=== PATIENT | male | born 1960 | race Caucasian/White ===

== ENCOUNTER 2018-04-30 18:14 | Emergency (ER) | payer OTHER ==
[~2018-04-30] VITALS: Ht 182.9 cm; Wt 131.5 kg
[~2018-04-30 18:14] MED LIST: ALBUTEROL SULF8.5 GM INH; AMOXICILLIN 50500 MG PO; AMOXICILLIN500 M1 PO; ASPIR 8181 M1 PO; AUGMENTIN 875875 MG PO; AZITHROMYCIN 2250 MG PO; BACTRIM DS TAB1 EACH PO; CHERACOL COUGH120 ML PO; CIPROFLOXACIN500 M1 PO; CLARITIN10 MG; CLEOCIN HCL150 MG PO; DELTASONE20 MG PO; FLEXERIL PO; FLOMAX0.4 MG PO; HYDROCODONE-AP1 EAC6 PO; KEFLEX500 MG PO; LEVAQUIN 750 M750 MG PO; MEDROLDOSEPACK PO; METFORMIN HCL500 MG PO; NOHOMEMEDICATIONS; NORCO 5-325 TA1 EACH PO; PREDNISONE 10 M10 MG PO; PREDNISONE 20 M20 M1 PO; PREDNISONE 20 M20 MG PO; PREDNISONE50 MG PO; PRILOSEC 20 MG20 MG PO; PRINIVIL20 M1 PO; PROAIR HFA8.5 GM INH; PROAIR HFA8.5 GM PO; PROMETH-CODEIN 65 ML PO; PROVENTIL IN; PYRIDIUM100 MG PO; TRAMADOL 50 MG50 MG PO; VENTOLIN HFA 1818 GM INH; VENTOLIN HFA INH8 GM INH; VENTOLIN17 GM INH; VICODIN 5-5001 EACH PO; ZPAK PO
[2018-04-30 19:06] LABS: ABSOLUTE BASOPHILS 0.1 thou/uL (0.0-0.2); ABSOLUTE EOSINOPHILS 0.2 thou/uL (0.0-0.7); ABSOLUTE LYMPHOCYTES 2.2 thou/uL (0.8-5.3); ABSOLUTE NEUTROPHILS 9.3 thou/uL (1.6-8.1); EOSINOPHILS 1.3 %; HEMATOCRIT 46.5 % (42.0-52.0); HEMOGLOBIN 15.2 gm/dL (14.0-18.0); LYMPHOCYTES 17.1 %; MCH 29.3 pg (26.0-34.0); MCHC 32.7 g/dL (28.0-37.0); MCV 89.5 fL (80.0-100.0); MONOCYTES 8.2 %; MPV 8.5 fl. (7.2-11.1); NUCLEATED RBCS 0 /100WBC; PLATELET COUNT* 312 thou/uL (150-400); POLYS 72.4 %; RDW-CV 14.2 % (10.5-14.5); WBC 12.8 thou/uL (4.0-11.0)
[2018-04-30 19:24] LABS: ANION GAP 4 mmol/L (7-16); BUN 9 mg/dL (7-18); CALCIUM 8.6 mg/dL (8.5-10.1); CHLORIDE 102 mmol/L (98-107); CO2 35 mmol/L (21-32); CREATININE 0.8 mg/dL (0.6-1.3); GLUCOSE 206 mg/dL (70-99); POTASSIUM 4.2 mmol/L (3.5-5.1); SODIUM 141 mmol/L (136-145)
[2018-04-30 19:34] LABS: ALBUMIN 3.5 g/dL (3.4-5.0); ALKALINE PHOSPHATASE 80 U/L (46-116); SGPT 20 U/L (30-65); TOTAL BILIRUBIN 0.3 mg/dL (<0.1-1.0); TOTAL PROTEIN 7.7 g/dL (6.4-8.2); TROPONIN-I LEVEL <0.06 ng/mL (<0.06)
[2018-04-30 19:50] LABS: SGOT 13 U/L (15-37)
[2018-04-30] MEDS ORDERED: ALBUTEROL2.5 MG/31 INH (20:25)
[2018-04-30] MEDS ORDERED: ZPAK PO (20:25)
[2018-04-30] MEDS ORDERED: PROAIR HFA8.5 GM INH (20:25)
[2018-04-30] MEDS ORDERED: PREDNISONE 20 M20 M1 PO (20:25)
[2018-04-30 20:57] VITALS: BP 135/75
--- NOTE | 2018-05-01 13:03 | EKG ---
[place] [address] ELECTROCARDIOGRAM REPORT Name: MARLENE CARTER Room: [facility]#: [id number] Admission: 04/30/18 Attend Phys: Discharge: 04/30/18 Date of : 60 Report #: [id number] THIS REPORT FOR: //name// [facility] ED Test Date: 2018-04-30 Test Time: 19:06:07 Pat Name: MARLENE CARTER Department: Room: Gender: M Inspector Electromechanical: : 1960 Requested By: Sujey Melara Order Number: [id number] MD: Reno Núñez Measurements Intervals [place] Rate: 91 P: 57 NV: 156 QRS: 34 QRSD: 82 T: 70 QT: 337 QTc: 415 Interpretive Statements Sinus rhythm Ventricular premature complex Baseline wander in lead(s) V3 Compared to ECG 04/20/2017 13:53:57 Ventricular premature complex(es) now present Electronically Signed On 05-01-2018 13:03:33 CDT by Reno Núñez [email or web address] <ELECTRONICALLY SIGNED> By: Reno Núñez MD, [facility] 05/01/18 1303 1906 1906 Reno Núñez MD, [facility] /EPI
== END 2018-04-30 21:02 | disposition home or self-care (01) ==
LOC: M.ERS 18:14
PROVIDERS: Nurse Practitioner Family
DX: J44.1 Chronic obstructive pulmonary disease with (acute) exacerbation (principal); R09.02 Hypoxemia; Z87.891 Personal history of nicotine dependence; Z90.49 Acquired absence of other specified parts of digestive tract

== ENCOUNTER 2018-07-13 19:25 | Emergency (ER) | payer OTHER ==
[~2018-07-13] VITALS: Ht 182.9 cm; Wt 127.0 kg
[~2018-07-13 19:25] MED LIST changes: +ALBUTEROL2.5 MG/31 INH
[2018-07-13 20:56] LABS: ANION GAP 4 mmol/L (7-16); BUN 11 mg/dL (7-18); CALCIUM 9.1 mg/dL (8.5-10.1); CHLORIDE 101 mmol/L (98-107); CO2 34 mmol/L (21-32); CREATININE 0.7 mg/dL (0.6-1.3); GLUCOSE 235 mg/dL (70-99); POTASSIUM 4.3 mmol/L (3.5-5.1); SODIUM 139 mmol/L (136-145)
[2018-07-13 21:03] LABS: ALBUMIN 3.5 g/dL (3.4-5.0); ALKALINE PHOSPHATASE 89 U/L (46-116); SGOT 10 U/L (15-37); SGPT 20 U/L (30-65); TOTAL BILIRUBIN 0.2 mg/dL (<0.1-1.0); TOTAL PROTEIN 7.7 g/dL (6.4-8.2); TROPONIN-I LEVEL <0.06 ng/mL (<0.06)
[2018-07-13 21:14] LABS: HEMATOCRIT 48.6 % (42.0-52.0); HEMOGLOBIN 15.8 gm/dL (14.0-18.0); MCH 29.1 pg (26.0-34.0); MCHC 32.6 g/dL (28.0-37.0); MCV 89.3 fL (80.0-100.0); MPV 9.2 fl. (7.2-11.1); NUCLEATED RBCS 0 /100WBC; PLATELET COUNT* 278 thou/uL (150-400); RBC 5.44 mil/uL (4.50-6.00); RDW-CV 13.8 % (10.5-14.5); WBC 13.3 thou/uL (4.0-11.0)
[2018-07-13] MEDS ORDERED: PREDNISONE 20 M20 M1 PO (21:28)
[2018-07-13] MEDS ORDERED: ZPAK PO (21:28)
[2018-07-13] MEDS ORDERED: VENTOLIN HFA 1818 GM INH (21:29)
[2018-07-13 21:33] LABS: ABSOLUTE LYMPHOCYTES 3.9 thou/uL (0.8-5.3); ABSOLUTE MONOCYTES 0.7 thou/uL (0.0-1.2); ABSOLUTE NEUTROPHILS 8.8 thou/uL (1.6-8.1); ATYPICAL LYMPHS 3 %; PLATELET ESTIMATE ADEQUATE
[2018-07-13 22:10] VITALS: BP 172/88
--- NOTE | 2018-07-15 15:33 | EKG ---
[place] [address] ELECTROCARDIOGRAM REPORT Name: MARLENE CARTER Room: 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: PAT : 1960 Requested By: Tammie Fowler Order Number: [id number] Reading MD: Hardeep Calles Measurements Intervals [place] Rate: 81 P: 59 WV: 147 QRS: 41 QRSD: 84 T: 69 QT: 369 QTc: 429 Interpretive Statements Sinus rhythm Compared to ECG 04/30/2018 19:06:07 Ventricular premature complex(es) no longer present Electronically Signed On 07-15-2018 15:33:40 PLANT OPERATOR by Hardeep Calles [email or web address] <ELECTRONICALLY SIGNED> By: Hardeep Calles MD, [facility] 07/15/18 1533 2145 2145 Hardeep Calles MD, FACC /EPI
--- NOTE | 2018-07-15 15:33 | EKG ---
[place] [address] ELECTROCARDIOGRAM REPORT Name: MARLENE CARTER Room: [facility]#: [id number] Admission: 07/13/18 Attend Phys: Discharge: 07/13/18 Date of : 60 Report #: [id number] THIS REPORT FOR: //name// [facility] ED Test Date: 2018-07-13 Test Time: 20:15:17 Pat Name: MARLENE CARTER Department: Room: Gender: M Optical Element Coater: KAROL : 1960 Requested By: Tammie Fowler Order Number: [id number] MD: Hardeep Calles Measurements Intervals [place] Rate: 75 P: 62 TX: 153 QRS: 42 QRSD: 86 T: 63 QT: 377 QTc: 421 Interpretive Statements Sinus rhythm Compared to ECG 04/30/2018 19:06:07 Ventricular premature complex(es) no longer present Electronically Signed On 07-15-2018 15:33:38 OPERATIONAL COMMUNICATION CHIEF by Hardeep Calles [email or web address] <ELECTRONICALLY SIGNED> By: Hardeep Calles MD, [facility] 07/15/18 1533 14 14 Hardeep Calles MD, FACC /EPI
== END 2018-07-13 22:13 | disposition home or self-care (01) ==
LOC: M.ERS 19:25
PROVIDERS: Nurse Practitioner Family
DX: J42 Unspecified chronic bronchitis (principal); Z87.891 Personal history of nicotine dependence; Z90.49 Acquired absence of other specified parts of digestive tract

== ENCOUNTER 2018-08-12 16:18 | Inpatient (IN) | payer OTHER ==
[~2018-08-12] VITALS: Ht 182.9 cm; Wt 135.6 kg
[2018-08-12 17:05] LABS: HEMATOCRIT 48.4 % (42.0-52.0); HEMOGLOBIN 16.1 gm/dL (14.0-18.0); MCH 29.1 pg (26.0-34.0); MCHC 33.3 g/dL (28.0-37.0); MCV 87.5 fL (80.0-100.0); MPV 9.5 fl. (7.2-11.1); NUCLEATED RBCS 0 /100WBC; PLATELET COUNT* 293 thou/uL (150-400); RBC 5.53 mil/uL (4.50-6.00); WBC 11.9 thou/uL (4.0-11.0)
[2018-08-12 17:18] LABS: ANION GAP 5 mmol/L (7-16); BUN 9 mg/dL (7-18); CALCIUM 8.5 mg/dL (8.5-10.1); CHLORIDE 97 mmol/L (98-107); CO2 32 mmol/L (21-32); CREATININE 0.7 mg/dL (0.6-1.3); GLUCOSE 233 mg/dL (70-99); POTASSIUM 3.9 mmol/L (3.5-5.1); SODIUM 134 mmol/L (136-145)
[2018-08-12 17:28] LABS: ALBUMIN 3.1 g/dL (3.4-5.0); ALKALINE PHOSPHATASE 94 U/L (46-116); LIPASE 96 U/L (73-393); NT-PRO BRAIN NAT PEPTIDE 185 pg/mL (<300); SGOT 11 U/L (15-37); SGPT 18 U/L (30-65); TOTAL BILIRUBIN 0.5 mg/dL (<0.1-1.0); TROPONIN-I LEVEL <0.06 ng/mL (<0.06)
[2018-08-12 17:45] LABS: APTT 26.4 Seconds (25.0-31.3); INR 1.1
[2018-08-12 17:49] LABS: ABSOLUTE LYMPHOCYTES 1.5 thou/uL (0.8-5.3); ABSOLUTE MONOCYTES 0.1 thou/uL (0.0-1.2); ABSOLUTE NEUTROPHILS 10.2 thou/uL (1.6-8.1)
[2018-08-12 17:50] LABS: PLATELET ESTIMATE ADEQUATE
[2018-08-12 17:59] LABS: TOXIC GRANULATION Occasional
[2018-08-12 19:12] LABS: BE 2.1 mmol/L (-2 to +3); HCO3 29.9 mmol/L (22.0-26.0); pH 7.325 (7.340-7.450)
[2018-08-12 19:20] LABS: PCO2 58.7 mmHg (35.0-45.0)
[2018-08-12 19:56] LABS: INFLUENZA A ANTIGEN None Detected (None Detect); INFLUENZA B ANTIGEN None Detected (None Detect)
[2018-08-12 21:37] LABS: URINE BILIRUBIN NEGATIVE (Negative); URINE BLOOD NEGATIVE (Negative); URINE CLARITY CLEAR; URINE COLOR YELLOW; URINE GLUCOSE-RANDOM NEGATIVE (Negative); URINE KETONES NEGATIVE (Negative); URINE LEUKOCYTES-REFLEX NEGATIVE (Negative); URINE NITRITE-REFLEX NEGATIVE (Negative); URINE PROTEIN NEGATIVE (Negative); URINE SPECIFIC GRAVITY <= 1.005 (1.005-1.030); URINE UROBILINOGEN 0.2 E.U./dl (0.2-1.0)
[2018-08-13] VITALS (8 sets, daily range): BP systolic 113–141; BP diastolic 55–79
[2018-08-13 05:41] LABS: ABSOLUTE LYMPHOCYTES 0.9 thou/uL (0.8-5.3); ABSOLUTE MONOCYTES 0.1 thou/uL (0.0-1.2); ABSOLUTE NEUTROPHILS 5.9 thou/uL (1.6-8.1); BASOPHILS 0.1 %; HEMATOCRIT 47.6 % (42.0-52.0); HEMOGLOBIN 15.7 gm/dL (14.0-18.0); LYMPHOCYTES 12.8 %; MCH 29.3 pg (26.0-34.0); MCV 88.8 fL (80.0-100.0); MONOCYTES 0.8 %; MPV 9.5 fl. (7.2-11.1); NUCLEATED RBCS 0 /100WBC; PLATELET COUNT* 325 thou/uL (150-400); POLYS 86.3 %; RBC 5.36 mil/uL (4.50-6.00); WBC 6.8 thou/uL (4.0-11.0)
[2018-08-13 06:03] LABS: CALCIUM 8.7 mg/dL (8.5-10.1); CREATININE 0.9 mg/dL (0.6-1.3); POTASSIUM 4.7 mmol/L (3.5-5.1)
--- NOTE | 2018-08-13 06:30 | NUR ---
PATIENT REMAINS ON VENTIMASK THROUGHOUT SHIFT AT 50% FIO2, 6L. O2 SATS MAINTAINED >92%. PATIENT STATES HE "FEELS MUCH BETTER NOW." PATIENT AMBULATING IN HALLWAY DESPITE THIS RN EDUCATING HIM ON BEDREST ORDERS TO PREVENT OVER EXERTION. PATIENT STATES HE FEELS BETTER WHEN HE GETS UP. PATIENT RECEIVED RELIEF FROM MORPHINE X1 FOR ABDOMINAL PAIN. CALL LIGHT WITHIN REACH
[2018-08-13 08:48] LABS: BE 0.8 mmol/L (-2 to +3); PCO2 48.6 mmHg (35.0-45.0); pH 7.363 (7.340-7.450)
[2018-08-13 08:49] LABS: PO2 50.7 mmHg (75.0-100.0)
[2018-08-13 10:06] LABS: pH 7.273 (7.340-7.450)
[2018-08-13 10:07] LABS: BE 0 mmol/L (-2 to +3); HCO3 28.8 mmol/L (22.0-26.0); PCO2 63.7 mmHg (35.0-45.0); PO2 72.7 mmHg (75.0-100.0)
--- NOTE | 2018-08-13 12:30 | NUR ---
Pt is A&O. Resides at home alone. Active and independent, continues to work outside of the home. No DME. No hx of HH or SNF. Per nurse, Pt may need home o2 at nd, Pt states that he cannot afford o2 and he does not have health insurance. CM explained that if Pt does need o2, it will cost around $130/month through [employer], and Pt will need to pay with a credit card. Pt reiterated that he is not able to afford the o2. Pt is currently not on o2 in his room. Following.
--- NOTE | 2018-08-13 12:45 | EKG ---
[place] [address] ELECTROCARDIOGRAM REPORT Name: MARLENE CARTER Room: [address] ADM IN [facility].#: [id number] Admission: 08/12/18 Attend Phys: Wilmer Hemphill MD Discharge: Date of : 60 Report #: [id number] THIS REPORT FOR: //name// [facility] ED Test Date: 2018-08-12 Test Time: 16:47:18 Pat Name: MARLENE CARTER Department: Room: 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
--- NOTE | 2018-08-13 17:56 | NUR ---
PATIENT UP IN [place] ABDM PAIN INCREASED SSI TO MEDIUM DOSE.
[2018-08-14] VITALS (11 sets, daily range): BP systolic 90–128; BP diastolic 45–85
--- NOTE | 2018-08-14 01:00 | NUR ---
RECEIVED REPORT AND ASSUMED CARE AT 1900. VSS. CARDIAC MONITORING IN PLACE. PT DENIES ANY COMPLAINTS OF PAIN. ASSESSMENT COMPLETED CHARTED. PT UP AD MANFRED ON RA. DISCUSSED PLAN OF CARE WITH PT, VERBALIZED UNDERSTANDING. PT REFUSING TO WEAR O2.PT EDUCATED, VERBALIZED UNDERSTANDING. BED LOCKED IN LOWEST POSITION, CALL LIGHT WITHIN REACH. WILL CONTINUE TO MONITOR FOR REMAINDER OF THE SHIFT
--- NOTE | 2018-08-14 08:00 | NUR ---
ASSUME CARE OF PT. AFIB IN 150S. DR CARDONA AWARE. CARDIZEM GTT INFUSING. CARDIOLOGY CONSULTED. PT ASYMPTOMATIC
--- NOTE | 2018-08-14 18:05 | NUR ---
Pt up in room and halls with steady gait. Afib in 140-160s on monitor. Asymptomatic Pt started on Sotalol and digoxin with minimal change in HR. Pt tolerating PO well. BG remain elevated-SS insulin given.
[2018-08-15] VITALS (10 sets, daily range): BP systolic 103–161; BP diastolic 60–84
[2018-08-15 02:10] LABS: ESTIMATED AVERAGE GLUCOSE > 398 mg/dL (()); GLYCOHEMOGLOBIN (HGB A1C) > 15.5 % (4.8-5.6)
--- NOTE | 2018-08-15 04:57 | NUR ---
RECEIVED REPORT AND ASSUMED CARE AT 1900. VSS. CARDIAC MONITORING IN PLACE. PT DENIES ANY COMPLAINTS OF PAIN. DISCUSSED PLAN OF CARE WITH PT, VERBALIZED UNDERSTANDING. ASSESSMENT COMPLETED CHARTED. PT UP AD MANFRED IN ROOM, ON RA. BED LOCKED IN LOWEST POSITION, CALL LIGHT WITHIN REACH. HOURLY ROUNDING COMPLETED AND ALL NEEDS MET.WILL CONTINUE TO MONITOR FOR REMAINDER OF THE SHIFT
--- NOTE | 2018-08-15 11:10 | NUR ---
RECEIVED REPORT FROM CLAUDIA LAZAR. AGREE WITH ASSESSMENT CHARTED. PT ALERT AND ORIETNED. NOTED AFIB ON MONITOR HR ELEVATED WILL MONITOR. IV NOW SALINE LOCKED. WILL CONITNUE TO MONITOR.
--- NOTE | 2018-08-15 13:45 | EKG ---
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
--- NOTE | 2018-08-15 14:08 | 2DMMODE ---
[place] [address] 2 D/M-MODE ECHOCARDIOGRAM Name: MARLENE CARTER Room: [address] IN [facility]#: [id number] Admission: 08/12/18 Attend Phys: Wilmer Hemphill, Discharge: Date of : 60 Date of Service: 08/15/18 1407 Report #: [id number] THIS REPORT FOR: //name// APPROVED REPORT Study performed: 08/15/2018 11:29:01 EXAM: Comprehensive 2D, Doppler, and color-flow Echocardiogram Patient Location: In-Patient Room #: [facility] Status: routine BSA: 2.52 HR: 124 bpm BP: 129/76 mmHg Rhythm: Atrial Fibrillation Other Information Study Quality: Adequate Indications Atrial Fibrillation Dyspnea 2D Dimensions IVSd: 15.84 (7-11mm) LVOT Diam: 22.97 (18-24mm) LVDd: 55.48 mm PWd: 10.43 (7-11mm) Ascending Ao: 34.69 (22-36mm) LVDs: 42.34 (25-40mm) Aortic Root: 34.60 mm Volumes Left Atrial Volume (Systole) LA ESV Index: 29.80 mL/m2 Aortic Valve AoV Peak Ian.: 1.20 m/s AO Peak Gr.: 5.80 mmHg LVOT Max P.80 mmHg AO Mean Gr.: 3.00 mmHg LVOT Mean P.45 mmHg LVOT Max V: 1.10 m/s AO V2 VTI: 20.49 cm LVOT Mean V: 0.72 m/s JILLIAN (VTI): 4.33 cm2 LVOT V1 VTI: 21.41 cm TDI Medial E' Ian.: 0.13 m/s Lateral E' Ian.: 0.16 m/[place] [address] 2 D/M-MODE ECHOCARDIOGRAM Name: MARLENE CARTER Room: [address] IN [facility].#: [id number] Admission: 08/12/18 Attend Phys: Wilmer Hemphill, Discharge: Date of : 60 Date of Service: 08/15/18 1407 Report #: [id number] Pulmonary Valve PV Peak Ian.: 0.94 m/s PV Peak Gr.: 3.51 mmHg Left Ventricle The left ventricle is normal size. There is global hypokinesis of the left ventricle. There is normal left ventricular wall thickness. Left ventricular systolic function is mildly decreased. LVEF is 45-50%. This study is not technically sufficient to allow evaluation of the LV diastolic function due to atrial fibrillation. Right Ventricle The right ventricle is normal size. The right ventricular systolic function is normal. Atria Left atrium is mildly dilated. The right atrium size is normal. Aortic Valve The aortic valve is normal in structure. No aortic regurgitation is present. There is no aortic valvular stenosis. Mitral Valve The mitral valve is normal in structure. Trace mitral regurgitation. No evidence of mitral valve stenosis. Tricuspid Valve The tricuspid valve is normal in structure. There is no tricuspid valve regurgitation noted. Pulmonic Valve Pulmonic valve is not well visualized. There is no pulmonic valvular regurgitation. Great Vessels The aortic root is normal in size. IVC is normal in size and collapses >50% with inspiration. Pericardium There is no pericardial effusion. <Conclusion> [place] [address] 2 D/M-MODE ECHOCARDIOGRAM Name: EMMAMARLENE L Room: [address] IN ..#: [id number] Admission: 08/12/18 Attend Phys: Wilmer Hemphill, Discharge: Date of : 60 Date of Service: 08/15/18 140 Report #: [id number] LVEF is 45-50%. Left atrium is mildly dilated. <ELECTRONICALLY SIGNED> By: Jasper Luna MD, [facility] 08/15/18 1407 1407 1407 Jasper Luna MD, FACC /INF
--- NOTE | 2018-08-15 15:38 | EKG ---
[place] [address] ELECTROCARDIOGRAM REPORT Name: MARLENE CARTER Room: [address] ADM IN ..#: [id number] Admission: 08/12/18 Attend Phys: Wilmer Hemphill MD Discharge: Date of : 60 Report #: [id number] THIS REPORT FOR: //name// [facility] Test Date: 2018-08-15 Test Time: 08:21:57 Pat Name: MARLENEBRENDA CARTER Department: Room: [address] Gender: M Adult Education Instructor: : 1960 Requested By: Jasper Luna Order Number: [id number] Nayeli MD: Jasper Luna Measurements Intervals [place] Rate: 88 P: [place]: QRS: 46 QRSD: 80 T: 62 QT: 349 QTc: 423 Interpretive Statements Atrial fibrillation Electronically Signed On 08-15-2018 15:38:46 BASEBALL HAND SEWER by Jasper Luna [email or web address] <ELECTRONICALLY SIGNED> By: Jasper Luna MD, [facility] 08/15/18 1538 0821 0 Jasper Luna MD, FACC /EPI
--- NOTE | 2018-08-15 17:18 | NUR ---
VSS. CARDIAC MONITORING IN PLACE AFIB. HR ELEVATED INTERMITTENTLY THROUGHOUT SHIFT FROM 110-150'S. PT REMAINS ALERT AND ORIENTED. PT ON RA. IV SALINE LOCKED. PT DENIES ANY PAIN. PT PROGRESSING TOWARDS GOALS. PT UP AD MANFRED. CALL LIGHT IS WITHIN REACH. WILL CONTINUE TO MONITOR FOR DURATION OF SHIFT.
[2018-08-16] VITALS: BP 143/76
[2018-08-16 04:00] VITALS: BP 110/65
[2018-08-16 07:50] VITALS: BP 137/66
--- NOTE | 2018-08-16 08:00 | NUR ---
RECEIVED REPORT. ASSUMED CARE OF PT AT 0730. VSS. CARDIAC MONITORING IN PLACE AFIB. AM ASSESSMENT AND VITALS COMPLETED CHARTED. PT ALERT AND ORIENTED. PT ON RA WITH O2 SAT AT 92% IV SALINE LOCKED. PT DENIES ANY PAIN OR DISCOMFORT THIS AM. PT SITTING AT EDGE OF BED EATING BREAKFAST THIS AM. PT REPORTS READY TO D/C TODAY. PT INFORMED OF PLAN OF CARE. CALL LIGHT IS WITHIN REACH. WILL CONTINUE TO MONTIOR FOR DURAITON OF SHIFT.
--- NOTE | 2018-08-16 08:01 | NUR ---
ASSUMED PT CARE @ 193. A+OX4. AFIB/AFLUTTER W OCCASSIONAL PVCS ON MONITOR. HEART RATE STEADILY IMPROVED THROUGH SHIFT. PT REPORTED HE DIDNT NEED BENTYL ANYMORE. NOTIFIED DAY SHIFT. PT DENIED ANY PAIN OR DISCOMFORT. SEE EMAR AND CHARTING. CALL LIGHT IN REACH. HOURLY ROUNDING FOR SAFETY.
[2018-08-16 09:08] VITALS: BP 137/66
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
[2018-08-16 11:30] VITALS: BP 113/68
[2018-08-16 12:12] VITALS: BP 113/68
--- NOTE | 2018-08-16 13:47 | EKG ---
[place] [address] ELECTROCARDIOGRAM REPORT Name: MARLENE CARTER Room: [address] ADM IN .R.#: [id number] Admission: 08/12/18 Attend Phys: Wilmer Hemphill MD Discharge: Date of : 60 Report #: [id number] THIS REPORT FOR: //name// [facility] Test Date: 2018-08-16 Test Time: 08:51:23 Pat Name: MARLENE CARTER Department: Room: [address] Gender: M Lean Specialist: : 1960 Requested By: Jasper Luna Order Number: [id number] Reading MD: Reno Núñez Measurements Intervals [place] Rate: 83 P: [place]: QRS: 38 QRSD: 80 T: 59 QT: 363 QTc: 427 Interpretive Statements Atrial fibrillation Compared to ECG 08/15/2018 08:21:57 No significant changes Electronically Signed On 08-16-2018 13:47:13 PLACEMENT ASSISTANT by Reno Núñez [email or web address] <ELECTRONICALLY SIGNED> By: Reno Núñez MD, [facility] 08/16/18 1347 0851 Reno Núñez MD, [facility] /EPI
[2018-08-16] MEDS ORDERED: PROTONIX40 M1 PO (16:19)
[2018-08-16] MEDS ORDERED: PREDNISONE 10 M10 MG PO (16:19)
[2018-08-16] MEDS ORDERED: VENTOLIN HFA 1818 GM INH (16:20)
[2018-08-16] MEDS ORDERED: METFORMIN HCL500 MG PO (16:21)
[2018-08-16] MEDS ORDERED: GLUCOTROL5 MG PO (16:21)
[2018-08-16] MEDS ORDERED: CEFDINIR300 MG PO (16:21)
[2018-08-16] MEDS ORDERED: DILTIAZEM HCL90 MG PO (17:25)
--- NOTE | 2018-08-16 17:39 | NUR ---
DISCAHRGE ORDERS RECEIVED AND PREPARED. IV AND CARDIAC MOTNIORING DISCONTINUED. PT EDUCATED ON DISCHARGE INSTRCUTIONS. PT GIVEN COPY OF DISCHARGE PAPERWORK AND NEW SCRIPTS. PT COMMUNICATES UNDERSTANDING. ALL PT'S PERSONAL BELONGINGS GATHERED AND SENT HOME WITH PT. PT ESCORTED OFF UNIT WITH NURSING STAFF. PT LEFT IN PRIVATE VEHICLE.
== END 2018-08-16 17:42 | disposition home or self-care (01) | DRG 189 ==
LOC: M.ERS 16:18 → M.TBA-ER 19:20 → M.2W 22:17 → M.TBA-ER 22:17 → M.2W 23:49
PROVIDERS: Emergency Medicine; Nurse Practitioner Psychiatric/Mental Health; ADMIT Internal Medicine
DX: J96.01 Acute respiratory failure with hypoxia (principal); J44.1 Chronic obstructive pulmonary disease with (acute) exacerbation; R65.10 Systemic inflammatory response syndrome (SIRS) of non-infectious origin without acute organ dysfunction; J44.0 Chronic obstructive pulmonary disease with (acute) lower respiratory infection; J20.9 Acute bronchitis, unspecified; E66.9 Obesity, unspecified; I48.91 Unspecified atrial fibrillation; E11.65 Type 2 diabetes mellitus with hyperglycemia; Z90.49 Acquired absence of other specified parts of digestive tract; Z68.41 Body mass index [BMI] 40.0-44.9, adult; Z90.81 Acquired absence of spleen; Z87.891 Personal history of nicotine dependence; Z82.49 Family history of ischemic heart disease and other diseases of the circulatory system

== ENCOUNTER 2018-08-28 10:25 | Inpatient (IN) | payer OTHER ==
[~2018-08-28] VITALS: Ht 182.9 cm; Wt 143.1 kg
[~2018-08-28 10:25] MED LIST changes: +CEFDINIR300 MG PO; +DILTIAZEM HCL90 MG PO; +GLUCOTROL5 MG PO; +PROTONIX40 M1 PO
[2018-08-28 10:52] LABS: HEMATOCRIT 45.9 % (42.0-52.0); HEMOGLOBIN 15.2 gm/dL (14.0-18.0); MCH 29.8 pg (26.0-34.0); MCHC 33.1 g/dL (28.0-37.0); MPV 9.5 fl. (7.2-11.1); NUCLEATED RBCS 0 /100WBC; PLATELET COUNT* 295 thou/uL (150-400); RBC 5.09 mil/uL (4.50-6.00); RDW-CV 14.5 % (10.5-14.5); WBC 18.2 thou/uL (4.0-11.0)
[2018-08-28 11:02] LABS: ANION GAP 5 mmol/L (7-16); APTT 24.5 Seconds (25.0-31.3); BUN 11 mg/dL (7-18); CALCIUM 8.5 mg/dL (8.5-10.1); CHLORIDE 99 mmol/L (98-107); CO2 33 mmol/L (21-32); CREATININE 0.9 mg/dL (0.6-1.3); GLUCOSE 396 mg/dL (70-99); INR 1.1; POTASSIUM 4.5 mmol/L (3.5-5.1); PROTIME 11.4 Seconds (9.20-11.50); SODIUM 137 mmol/L (136-145)
[2018-08-28 11:22] LABS: ABSOLUTE BASOPHILS 0.2 thou/uL (0.0-0.2); ABSOLUTE LYMPHOCYTES 3.1 thou/uL (0.8-5.3); ABSOLUTE MONOCYTES 0.9 thou/uL (0.0-1.2); ALKALINE PHOSPHATASE 104 U/L (46-116); ATYPICAL LYMPHS 4 %; CK-MB MASS 1.2 ng/mL (<0.5-3.6); LIPASE 175 U/L (73-393); MAGNESIUM 1.9 mg/dL (1.8-2.4); NT-PRO BRAIN NAT PEPTIDE 826 pg/mL (<300); PLATELET ESTIMATE ADEQUATE; SGOT 22 U/L (15-37); SGPT 76 U/L (30-65); TOTAL BILIRUBIN 0.8 mg/dL (<0.1-1.0); TOTAL PROTEIN 7.2 g/dL (6.4-8.2); TROPONIN-I LEVEL <0.06 ng/mL (<0.06)
[2018-08-28 14:24] VITALS: BP 107/75
[2018-08-28 14:45] VITALS: BP 116/97
--- NOTE | 2018-08-28 15:25 | NUR ---
1440 ADMITTED PER CART TO ROOM 229 FROM ER. SEE ADMISSION ASSESSMNET. PT IS A FIB WITH RVR. SEE MEDICATION TITRATION
--- NOTE | 2018-08-28 16:16 | NUR ---
1600 IV DIGOXIN GIVEN FOR A FIB RVR. DR LEWIS TO SEE PATIENT.
--- NOTE | 2018-08-28 16:29 | EKG ---
[place] [address] ELECTROCARDIOGRAM REPORT Name: MARLENE CARTER Room: [address] ADM IN R.#: [id number] Admission: 08/28/18 Attend Phys: Wilmer Hemphill MD Discharge: Date of : 60 Report #: [id number] THIS REPORT FOR: //name// [facility] ED Test Date: 2018-08-28 Test Time: 10:41:28 Pat Name: MARLENE CARTER Department: Room: [facility] Gender: M Web Press Operator Assistant: MEGAN : 1960 Requested By: Jomar Manuel Order Number: [id number] MD: David Rock Measurements Intervals [place] Rate: 169 P: [place]: QRS: 42 QRSD: 85 T: 72 QT: 267 QTc: 448 Interpretive Statements Atrial fibrillation with rapid V-rate Borderline low voltage, extremity leads Repolarization abnormality, prob rate related Compared to ECG 08/16/2018 08:51:23 Early repolarization now present Electronically Signed On 08-28-2018 16:28:49 DATA PROCESSING SPECIALIST by David Rock [email or web address] <ELECTRONICALLY SIGNED> By: David Rock MD, [facility] 08/28/18 1628 1041 1041 David Rock MD, [facility] /EPI
[2018-08-28 16:40] VITALS: BP 102/70
--- NOTE | 2018-08-28 17:14 | NUR ---
PATIENT STATES HE STOPPED TAKING MEDS INCLUDING DILTIAZEM AT HOME WHEN HE RAN OUT HE JUST COULD NOT AFFORD THEM. HE HAD CHECKED HIS BLOOD SUGAR WITH HIS BROTHER'S INSTRUMENT
--- NOTE | 2018-08-28 17:35 | NUR ---
PATIENT PROGRESSING TOWARDS GOALS. ADMITTED THIS AFTERNOON WITH COPD EXACERBATION AND A FIB WITH RVR. SEEN BY CARDIOLOGY. NOW ABLE TO TITRATE DOWN ON CARDIZEM. LUNGS REMAIN TIGHT. GLYCEMIC CONTROL IN PROGRESS.
[2018-08-28 20:00] VITALS: BP 134/80
[2018-08-29] VITALS: BP 113/86
--- NOTE | 2018-08-29 03:17 | NUR ---
ASSUMMED PT CARE @ 1930. PT A+OX4. REPORTED RIB/ABDOMINAL MUSCLE PAIN W COUGH. PT REQUESTING PAIN MEDICINE. BLOOD SUGAR 479 @ HS CHECK. PT ONLY HAS LANTUS 15U ORDERED. NOTIFIED GRAPHIC SPECIALIST DR. DUMONT INSTRUCTED RN TO EDUCATE PT ON DIABETES ( PT DENIES HE HAS DIABETES AND HAD HGBA1C A COUPLE WEEKS AGO OF >15, AND DR REVELES STATED HE HAD ALREADY DISCUSSED DIABETES WITH THIS PATIENT). HUMALOG 12 UNITS ALSO ORDERED AND GIVEN WELL NORCO FOR PAIN. PRINTED DIABETES EDUCATION AND HGBA1C INFO AND DISCUSSED WITH PT. PT STILL DENIED HE HAD DIABETES AND WAS REQUESTING RN TO GET HIM A 20 OZ SODA FROM VENDING MACHINE. THIS RN OFFERED TO GET PT A DIET SODA AND INFORMED PT I DID NOT FEEL COMFORTABLE WITH HIM DRINKING A REGULAR SODA WITH HIS BLOOD SUGAR ALMOST CRITICAL HIGH. PT REPEATEDLY ASKED TO GO TO HIS TRUCK TO "GET MONEY FOR A SODA AND CHECK ON HIS TIRES." REPEATEDLY INFORMED PT THAT THIS WAS NOT SAFE HIS AFIB AND HR WERE UNSTABLE (130'S) AND HE IS ON A CARDIZEM DRIP AND HOOKED UP TO [facility]. PT IGNORED NURSE'S INSTRUCTIONS NOT TO WALK AROUND UNIT WITH HIS CURRENT HR- AND LEFT ROOM AND WALKED AROUND NURSES STATION TO WAITING ROOM AND PURCHASED A REG SODA FROM THE VENDING MACHINE AND DRANK IT. PT STATED "IT HELPED MY PAIN TO GET UP AND WALK AROUND." HR INCREASED TO 140'S WHILE AMBULATING, BUT HAS BEEN RUNNING 90'S-120'S THROUGHOUT SHIFT. INSTRUCTED PT TO DRINK WATER BEFORE BED TO HELP WITH BLOOD SUGAR. PT HAS BEEN ABLE TO REST SINCE TAKING PAIN MEDS. HAS NOT GOTTEN OUT OF BED AGAIN. CALL LIGHT IN REACH. HOURLY ROUNDING FOR SAFETY.
[2018-08-29 04:00] VITALS: BP 118/56
[2018-08-29 04:59] LABS: ABSOLUTE BASOPHILS 0.2 thou/uL (0.0-0.2); ABSOLUTE LYMPHOCYTES 1.1 thou/uL (0.8-5.3); ABSOLUTE MONOCYTES 0.3 thou/uL (0.0-1.2); ABSOLUTE NEUTROPHILS 12.6 thou/uL (1.6-8.1); BASOPHILS 1.3 %; HEMATOCRIT 43.9 % (42.0-52.0); HEMOGLOBIN 14.1 gm/dL (14.0-18.0); LYMPHOCYTES 7.9 %; MCH 29.3 pg (26.0-34.0); MCHC 32.2 g/dL (28.0-37.0); MONOCYTES 2.3 %; MPV 9.8 fl. (7.2-11.1); NUCLEATED RBCS 0 /100WBC; PLATELET COUNT* 269 thou/uL (150-400); POLYS 88.5 %; RBC 4.82 mil/uL (4.50-6.00); RDW-CV 14.9 % (10.5-14.5); WBC 14.2 thou/uL (4.0-11.0)
[2018-08-29 05:13] LABS: CALCIUM 8.9 mg/dL (8.5-10.1); POTASSIUM 5.3 mmol/L (3.5-5.1)
[2018-08-29 07:55] VITALS: BP 116/55
--- NOTE | 2018-08-29 07:55 | NUR ---
RECEIVED REPORT FROM ARNOL AND ASSUMED CARE OF PT @ 5561.PT IS A/O X4,VSS,TRACING AFIB ON THE MONITOR.PT REMAINS ON 3L O2 NC.ASSESSMENT CHARTED.IV PATENT WITH CARDIZEM RUNNING @ 10.IV ANTIBIOTICS GIVEN.PT IS CALM AND COOPERATIVE WITH NO C/O PAIN AT TIME OF ASSESSMENT.PT IS UP AD MANFRED IN ROOM.CALL LIGHT WITHIN REACH.WILL CONTINUE TO MONITOR.
[2018-08-29 11:45] VITALS: BP 144/95
--- NOTE | 2018-08-29 12:00 | NUR ---
MET WITH PT TO DISCUSS HOME SITUATION/DC PLANNING. PT JUST DC'D 08/13. PT WAS GIVEN COMMUNITY RESOURCES AND SCRIPTS. PT DIDN'T FILL HIS SCRIPTS FOR HIS CV MEDS D/T COST. STRESSED IMPORTANCE AND RISK OF NOT TAKING THOSE MEDS. PT STATED HE'D BEEN OFF WORK FOR 2 WEEKS AND NEEDS TO GET BACK TO WORK. PER DR CARDONA, PT NEEDS TO F/U WITH A DR BEFORE GETTING CLEARANCE TO GO BACK TO WORK. WHEN PT MADE AWARE OF THIS, HE BECAME ANGRY, SAID THAT 'WASN'T OUR DEAL'. EXPLAINED HE'D NEED TO TALK WITH DR ABOUT THIS BUT THAT'S WHAT HE HAD SHARED WITH CM. TALKED WTIH PT ABOUT SAFETY NET CLINIC OPTIONS. 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 MADE AWARE THAT THOSE CLINICS AREN'T OPEN ON SAT, DID CONFIRM WITH [facility] AND [facility] [place]. DID MAKE PT AWARE THAT CM COULD ASSIST WTIH GETTING MEDS ONE TIME IF HE IS UNABLE TO AFFORD BUT ENCOURAGED HIM TO SECURE FOLLOW UP. PT VOICED FRUSTRATION ABOUT NEEDING TO GET BACK TO WORK. APPEARS TO HAVE LIMITED INSIGHT INTO ILLNESS. WILL FOLLOW
[2018-08-29 15:21] VITALS: BP 138/87
--- NOTE | 2018-08-29 18:08 | EKG ---
[place] [address] ELECTROCARDIOGRAM REPORT Name: MARLENE CARTER Room: [address] ADM IN M.R.#: [id number] Admission: 08/28/18 Attend Phys: Wilmer Hemphill MD Discharge: Date of : 60 Report #: [id number] THIS REPORT FOR: //name// [facility] Test Date: 2018-08-29 Test Time: 08:24:28 Pat Name: MARLENE CARTER Department: Room: [address] Gender: M Rental Agent: : 1960 Requested By: Hardeep Calles Order Number: [id number] Nayeli MD: Hardeep Calles Measurements Intervals [place] Rate: 110 P: [place]: QRS: 55 QRSD: 84 T: 73 QT: 424 QTc: 574 Interpretive Statements Atrial fibrillation Nonspecific T abnormalities, lateral leads Prolonged QT interval Compared to ECG 08/28/2018 10:41:28 T-wave abnormality now present Prolonged QT interval now present Early repolarization no longer present Electronically Signed On 08-29-2018 18:07:59 CARBIDE TOOL DIE MAKER by Hardeep Calles [email or web address] <ELECTRONICALLY SIGNED> By: Hardeep Calles MD, FACC 08/29/18 1807 Hardeep Calles MD, FAC /EPI
--- NOTE | 2018-08-29 18:11 | NUR ---
VSS.CARDIAC MONITORING IN PLACE WITH NO CHANGES.CARDIZEM DRIP D/C.PT REMAINS ON 2L O2 NC.INCENTIVE SPIROMETER GIVEN TO PT AND EDUCATED ON USE.NO C/O PAIN.IV PATENT AND SALINE LOCKED.IV ANTIBIOTICS GIVEN.PT BLOOD GLUCOSE HAS BEEN HIGH THE WHOLE SHIFT. PT INFORMED OF PLAN OF CARE AND COMMUNICATES UNDERSTANDING.PT AMBULATED IN ROOM WITH NO ASSISTANCE.HOURLY ROUNDING COMPLETED FOR PT SAFETY.CALL LIGHT WITHIN REACH.WILL CONTINUE TO MONITOR FOR DURATION OF SHIFT.
[2018-08-29 20:00] VITALS: BP 145/79
[2018-08-30] VITALS: BP 128/79
--- NOTE | 2018-08-30 00:12 | NUR ---
ASSUMED PT CARE @ 1930. PT REPORTED MILD SOA AFTER GETTING UP TO BATHROOM. O2 SAT 89% ON ROOM AIR. PT REPORTED HE WOULD "PUT HIS O2 BACK ON IN A MINUTE." ENCOUTAGED PT TO HIS HIS INCENTIVE SPIROMETER. PT GIVEN NORCO FOR PAIN W COUGH. PT DOES REPORT HIS "COUGH IS BETTER TODAY" AND NON-PRODUCTIVE. LANTUS AND HUMALOG GIVEN FOR DIABETES. PT IS CURRENTLY RESTING WITH EYES CLOSED. NO APPARENT PAIN OR DISTRESS. CALL LIGHT IN REACH. HOURLY ROUNDING FOR SAFETY.
[2018-08-30 04:00] VITALS: BP 119/72
[2018-08-30 05:27] LABS: HEMATOCRIT 42.4 % (42.0-52.0); HEMOGLOBIN 13.7 gm/dL (14.0-18.0); MCH 29.1 pg (26.0-34.0); MCHC 32.3 g/dL (28.0-37.0); MPV 9.3 fl. (7.2-11.1); NUCLEATED RBCS 0 /100WBC; PLATELET COUNT* 270 thou/uL (150-400); RBC 4.71 mil/uL (4.50-6.00); RDW-CV 14.6 % (10.5-14.5); WBC 24.7 thou/uL (4.0-11.0)
[2018-08-30 05:40] LABS: ALBUMIN 2.9 g/dL (3.4-5.0); CALCIUM 8.7 mg/dL (8.5-10.1); CREATININE 0.9 mg/dL (0.6-1.3); POTASSIUM 4.9 mmol/L (3.5-5.1); TOTAL BILIRUBIN 0.3 mg/dL (<0.1-1.0); TOTAL PROTEIN 6.2 g/dL (6.4-8.2)
[2018-08-30 05:54] LABS: ABSOLUTE LYMPHOCYTES 1.2 thou/uL (0.8-5.3); ABSOLUTE MONOCYTES 1.5 thou/uL (0.0-1.2); PLATELET ESTIMATE ADEQUATE; TARGET CELLS Occasional
[2018-08-30 05:55] LABS: ANISOCYTOSIS 1+; POIKILOCYTOSIS 1+
[2018-08-30 08:20] VITALS: BP 116/92
[2018-08-30 11:38] VITALS: BP 122/92
[2018-08-30 12:00] VITALS: BP 116/90
[2018-08-30 14:16] VITALS: BP 122/92
[2018-08-30] MEDS ORDERED: CARDIZEM CD240 MG PO (14:38)
[2018-08-30] MEDS ORDERED: FLECAINIDE ACET50 M1 PO (14:41)
[2018-08-30] MEDS ORDERED: GLIPIZIDE5 MG PO (14:43)
[2018-08-30] MEDS ORDERED: METFORMIN HCL500 MG PO (14:44)
[2018-08-30] MEDS ORDERED: PREDNISONE 10 M10 MG PO (14:47)
[2018-08-30] MEDS ORDERED: AUGMENTIN 875-1 EACH PO (14:48)
--- NOTE | 2018-08-30 15:02 | NUR ---
CONTINUE TO FOLLOW, DISCUSSED WT DR CARDONA. CV OK'D PT FOR DC WITH SCRIPTS. DR CARDONA WROTE SCRIPTS ALSO. MET [facility] PT. HE IS NOT ABLE TO AFFORD HIS MEDS. DISCUSSED AND MADE AWARE THAT CM CAN FILL MOST OF THEM BUT NOT INHALER. PT STATES HE HAS ONE AT HOME FOR NOW. HE HOPES TO GO BACK TO WORK, VOICED CONCERN ABOUT HIS BILLS. FORM COMPLETED AND SCRIPTS SENT TO SANGITA Simpson TO HAVE FILLED, PT AWARE HE WILL NEED TO GO PICK THEM UP. FILLED GLIPIZIDE, METFORMIN, AUGMENTIN, PREDNISONE, DILTIAZEM AND FLECANIDE. PT AGREEABLE TO HAVE APPT SET UP AT [facility] IN [place], MADE APPT IN ROOM AND PT SPOKE WITH THEM ABOUT ITEMS TO BRING TO APPT. APPT IS 2/4, IN PT'S DC PAPERWORK. STRESSED IMPORTANCE OF COMPLAINCE WITH MEDS AND F/U SCRIPTS WERE ONLY WRITTEN FOR A MONTH. PT AGREED BUT CONTINUES TO HAVE LIMITED INSIGHT INTO HIS ILLNESS. SUPPORT GIVEN. DR AND NURSE AWARE
--- NOTE | 2018-08-30 15:37 | NUR ---
PT DC'D WITH NO QUESTIONS. PT VSS. PT WAS AFIB RANGING FROM 80'S TO 140'S. DR CARDONA HAD THIS RN CONFIRM THIS HR AND RHYTHM WAS KNOWN BY DR LEWIS AND HE WAS CALLED AND VERIFIED THAT HE WAS AWARE SO DR CARDONA OKAYED THE DISCHARGE. PT TOLERATING DIET BUT HAS ELEVATED BS READINGS WITH INSULIN PROVIDED WELL ORAL GLUCOSE CONTROL MEDICATIONS. PT PROVIDED WITH RX AND WORK NOTE AT TIME OF DC. PT DID NOT VERBALIZE ANY QUESTIONS AT TIME OF DISCHARGE. PT UP AD MANFRED WITH STEADY GAIT AND AMBULATED OUT OF HOSPITAL. IV REMOVED INTACT. WILL SIGN OFF AT THIS TIME
--- NOTE | 2018-09-03 12:47 | CON ---
[address] [address] CONSULTATION Name: MARLENE CARTER Room: [address] IN .R.#: [id number] Admission: 08/28/18 Attend Phys: Wilmer Hemphill MD Discharge: 08/30/18 Date of : 60 Report #: [id number] THIS REPORT FOR: //name// CC: Wilemr Hemphill [facility] physician/PCP DATE OF SERVICE: 08/28/2018 INDICATION: Recurrent atrial fibrillation. HISTORY OF PRESENT ILLNESS: The patient is a pleasant 58-year-old gentleman, known to our service. He was recently in the hospital with upper respiratory tract infection and paroxysmal atrial fibrillation in this setting. He was treated at that time with diltiazem and achieved sinus rhythm. His LINDSEY score is 1. He is not anticoagulated. He returned to the hospital with recurrent bronchitis. In this setting, he has atrial fibrillation with a rapid ventricular response rate. He denies any chest pain. He does have a cough. He has shortness of breath and dyspnea, but no orthopnea. He is without other cardiac complaints at this time. PAST MEDICAL HISTORY: 1. Paroxysmal atrial fibrillation. 2. History of splenectomy. 3. History of cholecystectomy. CARDIAC MEDICATIONS ON ADMISSION: None. ALLERGIES: None. FAMILY HISTORY: Noncontributory. SOCIAL HISTORY: The patient quit drinking in his 30s. He does not use illicit drugs. States he quit smoking a year ago. REVIEW OF SYSTEMS: Noncontributory. PHYSICAL EXAMINATION: VITAL SIGNS: Blood pressure 116/97, pulse is in the 130s and irregular. GENERAL: This is a moderately obese, pleasant white male, in no distress. HEENT: Normocephalic, atraumatic. Extraocular muscles intact. Mucous membranes are moist. NECK: Shows no jugular venous distention. There are no carotid bruits. CHEST: Reveals diminished breath sounds with slight expiratory wheezes. CARDIAC: Reveals a tachycardic rhythm that is irregularly irregular without gallop or murmur. ABDOMEN: Reveals a protuberant abdomen, [place] [address] CONSULTATION Name: MARLENE CARTER Room: [address]#: [id number] Admission: 08/28/18 Attend Phys: Wilmer Hemphill MD Discharge: 08/30/18 Date of : 60 Report #: [id number] EXTREMITIES: Shows no edema. Peripheral pulses palpable. SKIN: Warm and dry. A 12-lead EKG shows atrial fibrillation with a rapid ventricular response rate. An echocardiogram from a week ago shows EF 45-50% with mild left atrial enlargement. LABORATORY DATA: Reviewed. Electrolytes are unremarkable. BUN 11, creatinine 0.9, serum glucose 396. LFTs within normal limits. Troponin unremarkable. Chest x-ray suggests chronic interstitial lung disease. IMPRESSION AND RECOMMENDATIONS: 1. Recurrent paroxysmal atrial fibrillation. I will start flecainide after a bolus to attempt to maintain sinus rhythm. Continue diltiazem for rate control. At this point, I am not starting anticoagulation. 2. Upper respiratory tract infection. Per primary physician. <ELECTRONICALLY SIGNED> By: Hardeep Calles MD, FACC 09/03/18 1247 1613 2046[facility] Calles MD, FACC /nt
== END 2018-08-30 15:33 | disposition home or self-care (01) | DRG 291 ==
LOC: M.ERS 10:25 → M.TBA-ER 12:15 → M.2W 12:15
PROVIDERS: Family Medicine; ADMIT Internal Medicine
DX: I50.33 Acute on chronic diastolic (congestive) heart failure (principal); J96.20 Acute and chronic respiratory failure, unspecified whether with hypoxia or hypercapnia; J44.1 Chronic obstructive pulmonary disease with (acute) exacerbation; Z68.41 Body mass index [BMI] 40.0-44.9, adult; I48.91 Unspecified atrial fibrillation; I48.0 Paroxysmal atrial fibrillation; J06.9 Acute upper respiratory infection, unspecified; E66.01 Morbid (severe) obesity due to excess calories; E11.65 Type 2 diabetes mellitus with hyperglycemia; D72.829 Elevated white blood cell count, unspecified; T38.0X5A Adverse effect of glucocorticoids and synthetic analogues, initial encounter; Z90.81 Acquired absence of spleen; Z90.49 Acquired absence of other specified parts of digestive tract; Z87.891 Personal history of nicotine dependence; Z91.19 Patient's noncompliance with other medical treatment and regimen

== ENCOUNTER 2018-09-12 13:57 | Emergency (ER) | payer OTHER ==
[~2018-09-12] VITALS: Ht 182.9 cm; Wt 127.0 kg
[~2018-09-12 13:57] MED LIST changes: +AUGMENTIN 875-1 EACH PO; +CARDIZEM CD240 MG PO; +FLECAINIDE ACET50 M1 PO; +GLIPIZIDE5 MG PO
[2018-09-12 14:41] LABS: ABSOLUTE BASOPHILS 0.2 thou/uL (0.0-0.2); ABSOLUTE EOSINOPHILS 0.1 thou/uL (0.0-0.7); ABSOLUTE LYMPHOCYTES 3.1 thou/uL (0.8-5.3); ABSOLUTE MONOCYTES 0.8 thou/uL (0.0-1.2); ABSOLUTE NEUTROPHILS 10.3 thou/uL (1.6-8.1); BASOPHILS 1.5 %; HEMOGLOBIN 14.3 gm/dL (14.0-18.0); LYMPHOCYTES 21.2 %; MCH 29.8 pg (26.0-34.0); MCHC 32.5 g/dL (28.0-37.0); MCV 91.5 fL (80.0-100.0); MONOCYTES 5.5 %; MPV 8.4 fl. (7.2-11.1); NUCLEATED RBCS 0 /100WBC; PLATELET COUNT* 296 thou/uL (150-400); POLYS 70.8 %; RBC 4.81 mil/uL (4.50-6.00); RDW-CV 15.6 % (10.5-14.5); WBC 14.5 thou/uL (4.0-11.0)
[2018-09-12 14:50] LABS: CALCIUM 8.8 mg/dL (8.5-10.1); CREATININE 0.8 mg/dL (0.6-1.3); POTASSIUM 4.1 mmol/L (3.5-5.1)
[2018-09-12 15:00] LABS: ALBUMIN 3.2 g/dL (3.4-5.0); TOTAL BILIRUBIN 0.4 mg/dL (<0.1-1.0); TOTAL PROTEIN 6.6 g/dL (6.4-8.2)
[2018-09-12 15:37] LABS: URINE BILIRUBIN NEGATIVE (Negative); URINE BLOOD NEGATIVE (Negative); URINE CLARITY CLEAR; URINE COLOR YELLOW; URINE GLUCOSE-RANDOM 2+ (Negative); URINE KETONES NEGATIVE (Negative); URINE LEUKOCYTES-REFLEX NEGATIVE (Negative); URINE NITRITE-REFLEX NEGATIVE (Negative); URINE PROTEIN NEGATIVE (Negative); URINE SPECIFIC GRAVITY 1.025 (1.005-1.030); URINE UROBILINOGEN 0.2 E.U./dl (0.2-1.0)
[2018-09-12] MEDS ORDERED: CARDIZEM CD240 MG PO (16:16)
[2018-09-12] MEDS ORDERED: PROAIR HFA8.5 GM INH (16:16)
[2018-09-12 16:25] VITALS: BP 127/77
--- NOTE | 2018-09-13 11:02 | EKG ---
[place] [address] ELECTROCARDIOGRAM REPORT Name: MARLENE CARTER Room: [facility]#: [id number] Admission: 09/12/18 Attend Phys: Discharge: 09/12/18 Date of : 60 Report #: [id number] THIS REPORT FOR: //name// [facility] ED Test Date: 2018-09-12 Test Time: 14:23:14 Pat Name: MARLENE CARTER Department: Room: Gender: M Cable Layer: : 1960 Requested By: Jo Arauz Order Number: [id number] MD: Jasper Luna Measurements Intervals [place] Rate: 122 P: MD: QRS: 47 QRSD: 92 T: 80 QT: 318 QTc: 453 Interpretive Statements Atrial fibrillation Nonspecific T abnormalities, lateral leads Compared to ECG 08/29/2018 08:24:28 Prolonged QT interval no longer present T-wave abnormality still present Electronically Signed On 09-13-2018 11:01:57 CHIEF TELEPHONE OPERATOR by Jasper Luna [email or web address] <ELECTRONICALLY SIGNED> By: Jasper Luna MD, [facility] 09/13/18 1101 1423 1423 Jasper Luna MD, FAC /EPI
== END 2018-09-12 16:25 | disposition left against medical advice (07) ==
LOC: M.ERS 13:57
PROVIDERS: Physician Assistant
DX: I48.2 Chronic atrial fibrillation (principal); R60.0 Localized edema; Z76.0 Encounter for issue of repeat prescription; R09.02 Hypoxemia; J44.9 Chronic obstructive pulmonary disease, unspecified; Z87.891 Personal history of nicotine dependence; Z90.49 Acquired absence of other specified parts of digestive tract

== ENCOUNTER 2018-09-16 19:40 | Inpatient (IN) | payer OTHER ==
[~2018-09-16] VITALS: Ht 182.9 cm; Wt 142.4 kg
[2018-09-16 20:02] LABS: ABSOLUTE BASOPHILS 0.2 thou/uL (0.0-0.2); ABSOLUTE EOSINOPHILS 0.1 thou/uL (0.0-0.7); ABSOLUTE LYMPHOCYTES 2.5 thou/uL (0.8-5.3); ABSOLUTE MONOCYTES 0.7 thou/uL (0.0-1.2); ABSOLUTE NEUTROPHILS 9.5 thou/uL (1.6-8.1); BASOPHILS 1.4 %; EOSINOPHILS 0.6 %; HEMOGLOBIN 14.3 gm/dL (14.0-18.0); LYMPHOCYTES 19.1 %; MCH 29.9 pg (26.0-34.0); MCHC 32.6 g/dL (28.0-37.0); MCV 91.8 fL (80.0-100.0); MONOCYTES 5.3 %; MPV 9.2 fl. (7.2-11.1); NUCLEATED RBCS 0 /100WBC; PLATELET COUNT* 274 thou/uL (150-400); POLYS 73.6 %; RDW-CV 16.1 % (10.5-14.5); WBC 12.9 thou/uL (4.0-11.0)
[2018-09-16 20:28] LABS: ALBUMIN 3.1 g/dL (3.4-5.0); CREATININE 0.9 mg/dL (0.6-1.3); POTASSIUM 4.4 mmol/L (3.5-5.1); TOTAL BILIRUBIN 0.3 mg/dL (<0.1-1.0); TOTAL PROTEIN 6.1 g/dL (6.4-8.2)
[2018-09-16 20:34] LABS: CALCIUM 8.5 mg/dL (8.5-10.1)
[2018-09-16 21:25] VITALS: BP 139/89
[2018-09-16 22:00] VITALS: BP 102/82
[2018-09-17 00:10] VITALS: BP 111/52
[2018-09-17 04:52] VITALS: BP 102/82
[2018-09-17 07:55] VITALS: BP 119/73
--- NOTE | 2018-09-17 11:08 | EKG ---
[place] [address] ELECTROCARDIOGRAM REPORT Name: MARLENE CARTER Room: [address] ADM IN [facility]#: [id number] Admission: 09/16/18 Attend Phys: Christine Tello Discharge: Date of : 60 Report #: [id number] THIS REPORT FOR: //name// [facility] ED Test Date: 2018-09-16 Test Time: 19:46:35 Pat Name: MARLENE CARTER Department: Room: [facility] Gender: M Dining Room Host/Hostess: XANDER : 1960 Requested By: Eden Pemberton Order Number: [id number] MD: Jasper Luna Measurements Intervals [place] Rate: 146 P: [place]: QRS: 31 QRSD: 91 T: 72 QT: 279 QTc: 435 Interpretive Statements Atrial fibrillation Borderline low voltage, extremity leads Compared to ECG 09/12/2018 14:23:14 no change Electronically Signed On 09-17-2018 11:08:24 PRESCHOOL ASSISTANT TEACHER by Jasper Luna [email or web address] <ELECTRONICALLY SIGNED> By: Jasper Luna MD, [facility] 09/17/18 1108 45 45 Jasper Luna MD, FAC /EPI
[2018-09-17 12:35] VITALS: BP 110/73
[2018-09-17 16:53] VITALS: BP 125/53
[2018-09-17 20:00] VITALS: BP 117/66
[2018-09-18 00:10] VITALS: BP 121/74
[2018-09-18 04:00] VITALS: BP 113/75
[2018-09-18 06:18] LABS: CALCIUM 8.5 mg/dL (8.5-10.1); POTASSIUM 4.4 mmol/L (3.5-5.1)
[2018-09-18 08:00] VITALS: BP 115/76
[2018-09-18 12:12] VITALS: BP 114/65
[2018-09-18 15:18] VITALS: BP 102/66
[2018-09-18 19:20] VITALS: BP 121/61
[2018-09-18 23:08] LABS: GLYCOHEMOGLOBIN (HGB A1C) 12.3 % (4.8-5.6)
[2018-09-19] VITALS: BP 120/70
[2018-09-19 04:00] VITALS: BP 105/73
[2018-09-19 05:20] LABS: HEMATOCRIT 43.5 % (42.0-52.0); MCH 29.7 pg (26.0-34.0); MCHC 32.1 g/dL (28.0-37.0); MCV 92.3 fL (80.0-100.0); MPV 9.5 fl. (7.2-11.1); RBC 4.71 mil/uL (4.50-6.00); RDW-CV 16.4 % (10.5-14.5)
[2018-09-19 05:38] LABS: ANION GAP < 0 mmol/L (7-16); BUN 18 mg/dL (7-18); CALCIUM 8.7 mg/dL (8.5-10.1); CHLORIDE 100 mmol/L (98-107); CO2 39 mmol/L (21-32); CREATININE 0.8 mg/dL (0.6-1.3); GLUCOSE 295 mg/dL (70-99); MAGNESIUM 2.1 mg/dL (1.8-2.4); POTASSIUM 4.6 mmol/L (3.5-5.1); SODIUM 137 mmol/L (136-145)
[2018-09-19 08:01] VITALS: BP 118/79
[2018-09-19] MEDS ORDERED: LOPRESSOR50 PO (11:51)
[2018-09-19] MEDS ORDERED: ASPIR 8181 MG PO (11:51)
[2018-09-19] MEDS ORDERED: LIDOPATCH1 EACH TOP (11:51)
[2018-09-19] MEDS ORDERED: GLUCOPHAGE500 MG PO (11:51)
[2018-09-19] MEDS ORDERED: NEBULIZER MISCELL (11:51)
[2018-09-19] MEDS ORDERED: PREDNISONE 20 M20 MG PO (11:51)
[2018-09-19] MEDS ORDERED: TRAMADOL 50 MG50 MG PO (11:51)
[2018-09-19] MEDS ORDERED: LEVAQUIN 500 M500 M1 PO (11:51)
[2018-09-19] MEDS ORDERED: GLUCOTROL5 MG PO (11:51)
[2018-09-19] MEDS ORDERED: IPRAT-ALBUT 0.5-3 ML INH (11:51)
[2018-09-19] MEDS ORDERED: LASIX 40 MG TAB40 M1 PO (11:51)
[2018-09-19] MEDS ORDERED: K-DUR 20 MEQ T20 MEQ PO (11:56)
[2018-09-19 12:00] VITALS: BP 108/46
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
[2018-09-19 13:12] VITALS: BP 108/46
== END 2018-09-19 14:52 | disposition home or self-care (01) | DRG 291 ==
LOC: M.ERS 19:40 → M.TBA-ER 20:21 → M.2W 20:21
PROVIDERS: Emergency Medicine; Internal Medicine; Internal Medicine Cardiovascular Disease; ADMIT Internal Medicine
DX: I11.0 Hypertensive heart disease with heart failure (principal); J96.91 Respiratory failure, unspecified with hypoxia; J44.1 Chronic obstructive pulmonary disease with (acute) exacerbation; Z68.41 Body mass index [BMI] 40.0-44.9, adult; I50.23 Acute on chronic systolic (congestive) heart failure; I48.91 Unspecified atrial fibrillation; E11.65 Type 2 diabetes mellitus with hyperglycemia; T38.0X5A Adverse effect of glucocorticoids and synthetic analogues, initial encounter; E66.9 Obesity, unspecified; Z91.19 Patient's noncompliance with other medical treatment and regimen; Z79.899 Other long term (current) drug therapy; Y92.89 Other specified places as the place of occurrence of the external cause; Z79.84 Long term (current) use of oral hypoglycemic drugs; Z79.51 Long term (current) use of inhaled steroids; Z87.891 Personal history of nicotine dependence; Z90.49 Acquired absence of other specified parts of digestive tract

== ENCOUNTER 2018-09-26 09:10 | Emergency (ER) | payer OTHER ==
[~2018-09-26] VITALS: Ht 182.9 cm; Wt 136.1 kg
[~2018-09-26 09:10] MED LIST changes: +ASPIR 8181 MG PO; +GLUCOPHAGE500 MG PO; +IPRAT-ALBUT 0.5-3 ML INH; +K-DUR 20 MEQ T20 MEQ PO; +LASIX 40 MG TAB40 M1 PO; +LEVAQUIN 500 M500 M1 PO; +LIDOPATCH1 EACH TOP; +LOPRESSOR50 PO; +NEBULIZER MISCELL
[2018-09-26 09:32] LABS: HEMATOCRIT 44.6 % (42.0-52.0); HEMOGLOBIN 14.5 gm/dL (14.0-18.0); MCHC 32.5 g/dL (28.0-37.0); MCV 92.2 fL (80.0-100.0); MPV 9.7 fl. (7.2-11.1); NUCLEATED RBCS 0 /100WBC; PLATELET COUNT* 269 thou/uL (150-400); RBC 4.84 mil/uL (4.50-6.00); RDW-CV 15.7 % (10.5-14.5)
[2018-09-26] MEDS ORDERED: LASIX 40 MG TAB40 M2 PO (09:33)
[2018-09-26] MEDS ORDERED: PREDNISONE 20 M20 MG PO (09:33)
[2018-09-26] MEDS ORDERED: LOPRESSOR50 PO (09:33)
[2018-09-26] MEDS ORDERED: GLUCOTROL5 MG PO (09:33)
[2018-09-26] MEDS ORDERED: METFORMIN HCL500 MG PO (09:34)
[2018-09-26] MEDS ORDERED: TRAMADOL 50 MG50 MG PO (09:34)
[2018-09-26] MEDS ORDERED: POTASSIUM20 PO (09:34)
[2018-09-26 09:46] LABS: ANION GAP 5 mmol/L (7-16); BUN 21 mg/dL (7-18); CALCIUM 8.3 mg/dL (8.5-10.1); CHLORIDE 100 mmol/L (98-107); CO2 32 mmol/L (21-32); CREATININE 1.2 mg/dL (0.6-1.3); GLUCOSE 387 mg/dL (70-99); POTASSIUM 4.8 mmol/L (3.5-5.1); SODIUM 137 mmol/L (136-145)
[2018-09-26 10:02] LABS: ALKALINE PHOSPHATASE 65 U/L (46-116); CK-MB MASS 1.1 ng/mL (<0.5-3.6); LIPASE 131 U/L (73-393); MAGNESIUM 1.5 mg/dL (1.8-2.4); NT-PRO BRAIN NAT PEPTIDE 1119 pg/mL (<300); SGOT 42 U/L (15-37); SGPT 97 U/L (30-65); TOTAL BILIRUBIN 0.8 mg/dL (<0.1-1.0); TROPONIN-I LEVEL <0.06 ng/mL (<0.06)
[2018-09-26 10:15] LABS: APTT 23.6 Seconds (25.0-31.3); INR 1.2; PROTIME 11.8 Seconds (9.20-11.50)
[2018-09-26] MEDS ORDERED: PREDNISONE 20 M20 M1 PO (10:20)
[2018-09-26] MEDS ORDERED: VENTOLIN HFA 1818 GM INH (10:20)
[2018-09-26 10:35] VITALS: BP 114/71
[2018-09-26 11:00] LABS: ABSOLUTE LYMPHOCYTES 2.6 thou/uL (0.8-5.3); ABSOLUTE MONOCYTES 0.9 thou/uL (0.0-1.2); ABSOLUTE NEUTROPHILS 11.6 thou/uL (1.6-8.1); METAMYELOCYTES 2 %
[2018-09-26 11:03] LABS: PLATELET ESTIMATE ADEQUATE
[2018-09-26 11:04] LABS: HYPOCHROMASIA Occasional; LARGE PLATELETS RARE
[2018-09-26 11:05] LABS: MACROCYTES Occasional; POLYCHROMASIA Occasional
[2018-09-26 11:06] LABS: POIKILOCYTOSIS 2+
[2018-09-26 11:07] LABS: ANISOCYTOSIS 1+
--- NOTE | 2018-09-26 15:30 | EKG ---
[place] [address] ELECTROCARDIOGRAM REPORT Name: MARLENE CARTER Room: [facility]#: [id number] Admission: 09/26/18 Attend Phys: Discharge: 09/26/18 Date of : 60 Report #: [id number] THIS REPORT FOR: //name// [facility] ED Test Date: 2018-09-26 Test Time: 09:16:24 Pat Name: MARLENE CARTER Department: Room: Gender: M Soup Person: TDOWNS : 1960 Requested By: Jomar Manuel Order Number: [id number] MD: Jasper Luna Measurements Intervals [place] Rate: 159 P: SD: QRS: 38 QRSD: 77 T: 72 QT: 288 QTc: 469 Interpretive Statements Atrial fibrillation Borderline low voltage, extremity leads Compared to ECG 09/16/2018 19:46:35 No significant changes Electronically Signed On 09-26-2018 15:30:07 EMBOSSING MACHINE TENDER by Jasepr Luna [email or web address] <ELECTRONICALLY SIGNED> By: Jasper Luna MD, [facility] 09/26/18 1530 0916 5 Jasper Luna MD, FACC /EPI
== END 2018-09-26 10:35 | disposition left against medical advice (07) ==
LOC: M.ERS 09:10
PROVIDERS: Family Medicine
DX: I48.2 Chronic atrial fibrillation (principal); J44.1 Chronic obstructive pulmonary disease with (acute) exacerbation; Z87.891 Personal history of nicotine dependence; Z90.49 Acquired absence of other specified parts of digestive tract

== ENCOUNTER 2018-10-16 12:20 | Emergency (ER) | payer OTHER ==
[~2018-10-16] VITALS: Ht 182.9 cm; Wt 136.1 kg
[~2018-10-16 12:20] MED LIST changes: +ASPIRIN325 PO; +CARDIZEM CD120 MG PO; +GLUCOPHAGE1000 MG PO; +LANOXIN 0.25M0.25 M1 PO; +LASIX 40 MG TAB40 M2 PO; +LIPITOR40 MG PO; +POTASSIUM20 PO; +TOPROL XL100 MG PO
[2018-10-16] MEDS ORDERED: VENTOLIN HFA 1818 GM INH (13:01)
[2018-10-16] MEDS ORDERED: PREDNISONE 20 M20 M1 PO (13:01)
[2018-10-16 13:22] VITALS: BP 105/61
== END 2018-10-16 13:23 | disposition home or self-care (01) ==
LOC: M.ERS 12:20
DX: J44.1 Chronic obstructive pulmonary disease with (acute) exacerbation (principal); Z90.49 Acquired absence of other specified parts of digestive tract; I48.91 Unspecified atrial fibrillation; I50.20 Unspecified systolic (congestive) heart failure; Z87.891 Personal history of nicotine dependence

== ENCOUNTER 2018-10-29 13:28 | Emergency (ER) | payer OTHER ==
[~2018-10-29] VITALS: Ht 182.9 cm; Wt 136.1 kg
[2018-10-29 14:01] LABS: ABSOLUTE BASOPHILS 0.1 thou/uL (0.0-0.2); ABSOLUTE EOSINOPHILS 0.2 thou/uL (0.0-0.7); ABSOLUTE LYMPHOCYTES 2.7 thou/uL (0.8-5.3); ABSOLUTE MONOCYTES 0.8 thou/uL (0.0-1.2); ABSOLUTE NEUTROPHILS 8.7 thou/uL (1.6-8.1); BASOPHILS 0.9 %; EOSINOPHILS 1.3 %; HEMATOCRIT 41.6 % (42.0-52.0); HEMOGLOBIN 13.6 gm/dL (14.0-18.0); LYMPHOCYTES 21.9 %; MCH 30.1 pg (26.0-34.0); MCHC 32.8 g/dL (28.0-37.0); MCV 91.9 fL (80.0-100.0); MONOCYTES 6.3 %; NUCLEATED RBCS 0 /100WBC; PLATELET COUNT* 311 thou/uL (150-400); POLYS 69.6 %; RBC 4.52 mil/uL (4.50-6.00); WBC 12.4 thou/uL (4.0-11.0)
[2018-10-29 14:15] LABS: ANION GAP 5 mmol/L (7-16); BUN 9 mg/dL (7-18); CALCIUM 8.1 mg/dL (8.5-10.1); CHLORIDE 105 mmol/L (98-107); CO2 31 mmol/L (21-32); CREATININE 0.8 mg/dL (0.6-1.3); GLUCOSE 224 mg/dL (70-99); POTASSIUM 3.8 mmol/L (3.5-5.1); SODIUM 141 mmol/L (136-145); TROPONIN-I LEVEL <0.06 ng/mL (<0.06)
[2018-10-29 14:17] LABS: ALBUMIN 2.9 g/dL (3.4-5.0); ALKALINE PHOSPHATASE 75 U/L (46-116); NT-PRO BRAIN NAT PEPTIDE 746 pg/mL (<300); SGOT 8 U/L (15-37); SGPT 23 U/L (30-65); TOTAL BILIRUBIN 0.4 mg/dL (<0.1-1.0); TOTAL PROTEIN 6.2 g/dL (6.4-8.2)
[2018-10-29] MEDS ORDERED: KEFLEX500 M1 PO (14:21)
[2018-10-29] MEDS ORDERED: PREDNISONE 20 M20 MG PO (14:23)
[2018-10-29] MEDS ORDERED: NORCO 5-325 TA1 EACH PO (14:25)
[2018-10-29] MEDS ORDERED: PROAIR HFA8.5 GM INH (14:40)
[2018-10-29] MEDS ORDERED: ATROVENT HFA14 GM INH (14:41)
[2018-10-29 14:44] VITALS: BP 123/67
--- NOTE | 2018-10-29 17:46 | EKG ---
[place] [address] ELECTROCARDIOGRAM REPORT Name: MARLENE CARTER Room: [facility]#: [id number] Admission: 10/29/18 Attend Phys: Discharge: 10/29/18 Date of : 60 Report #: [id number] THIS REPORT FOR: //name// [facility] ED Test Date: 2018-10-29 Test Time: 13:42:23 Pat Name: MARLENE CARTER Department: Room: Gender: M Polarity Tester: LOPEZ EMT STUDENT : 1960 Requested By: Jo Arauz Order Number: [id number] MD: Hardeep Calles Measurements Intervals [place] Rate: 88 P: [place]: QRS: 35 QRSD: 82 T: 28 QT: 348 QTc: 421 Interpretive Statements Atrial fibrillation Borderline T abnormalities, lateral leads Compared to ECG 09/30/2018 19:08:20 T-wave abnormality now present Electronically Signed On 10-29-2018 17:46:33 CDT by Hardeep Calles [email or web address] <ELECTRONICALLY SIGNED> By: Hardeep Calles MD, [facility] 10/29/18 1746 1342 134 Hardeep Calles MD, FACC /EPI
== END 2018-10-29 14:45 | disposition home or self-care (01) ==
LOC: M.ERS 13:28
PROVIDERS: Physician Assistant
DX: I48.91 Unspecified atrial fibrillation (principal); J44.1 Chronic obstructive pulmonary disease with (acute) exacerbation; L03.116 Cellulitis of left lower limb; Z87.891 Personal history of nicotine dependence; Z90.49 Acquired absence of other specified parts of digestive tract

== ENCOUNTER 2018-11-10 11:05 | Emergency (ER) | payer OTHER ==
[~2018-11-10] VITALS: Ht 182.9 cm; Wt 136.1 kg
[~2018-11-10 11:05] MED LIST changes: +ATROVENT HFA14 GM INH; +KEFLEX500 M1 PO
[2018-11-10] MEDS ORDERED: PREDNISONE 20 M20 M1 PO (11:54)
[2018-11-10] MEDS ORDERED: CARDIZEM CD120 MG PO (11:54)
[2018-11-10] MEDS ORDERED: TOPROL XL100 MG PO (11:54)
[2018-11-10] MEDS ORDERED: PROAIR HFA8.5 GM INH (11:54)
[2018-11-10] MEDS ORDERED: LANOXIN 0.25M0.25 M1 PO (11:54)
[2018-11-10 12:21] VITALS: BP 114/87
== END 2018-11-10 12:22 | disposition home or self-care (01) ==
LOC: M.ERS 11:05
DX: J44.1 Chronic obstructive pulmonary disease with (acute) exacerbation (principal); Z76.0 Encounter for issue of repeat prescription; I48.91 Unspecified atrial fibrillation; I50.20 Unspecified systolic (congestive) heart failure; Z90.49 Acquired absence of other specified parts of digestive tract; Z87.891 Personal history of nicotine dependence

== ENCOUNTER 2018-12-10 10:49 | Emergency (ER) | payer OTHER ==
[~2018-12-10] VITALS: Ht 182.9 cm; Wt 131.5 kg
[2018-12-10] MEDS ORDERED: PREDNISONE 20 M20 M1 PO (11:45)
[2018-12-10] MEDS ORDERED: VENTOLIN HFA 1818 GM INH (11:45)
[2018-12-10 12:23] VITALS: BP 126/67
--- NOTE | 2018-12-10 15:31 | EKG ---
[place] [address] ELECTROCARDIOGRAM REPORT Name: MARLENE CARTER Room: [facility]#: [id number] Admission: 12/10/18 Attend Phys: Discharge: 12/10/18 Date of : 60 Report #: [id number] THIS REPORT FOR: //name// [facility] ED Test Date: 2018-12-10 Test Time: 10:54:20 Pat Name: MALRENE CARTER Department: Room: Gender: M Music Composer: LORI : 1960 Requested By: Jomar Manuel Order Number: [id number] MD: Jasper Luna Measurements Intervals [place] Rate: 77 P: [place]: QRS: 25 QRSD: 70 T: 128 QT: 444 QTc: 503 Interpretive Statements Atrial fibrillation Borderline low voltage, extremity leads Nonspecific T abnormalities, lateral leads Baseline wander in lead(s) II,aVR Compared to ECG 10/29/2018 13:42:23 No significant changes Electronically Signed On 12-10-2018 15:31:16 CDT by Jasper Luna [email or web address] <ELECTRONICALLY SIGNED> By: Jasper Luna MD, [facility] 12/10/18 1531 1054 1054 Jasper Luna MD, [facility] /EPI
== END 2018-12-10 12:23 | disposition home or self-care (01) ==
LOC: M.ERS 10:49
DX: J44.1 Chronic obstructive pulmonary disease with (acute) exacerbation (principal); I50.20 Unspecified systolic (congestive) heart failure; Z90.49 Acquired absence of other specified parts of digestive tract; Z87.891 Personal history of nicotine dependence

== ENCOUNTER 2019-01-26 18:02 | Emergency (ER) | payer OTHER ==
[~2019-01-26] VITALS: Ht 182.9 cm; Wt 129.3 kg
[2019-01-26 18:56] LABS: ABSOLUTE EOSINOPHILS 0.1 thou/uL (0.0-0.7); ABSOLUTE LYMPHOCYTES 2.6 thou/uL (0.8-5.3); ABSOLUTE MONOCYTES 0.8 thou/uL (0.0-1.2); ABSOLUTE NEUTROPHILS 9.8 thou/uL (1.6-8.1); BASOPHILS 0.3 %; EOSINOPHILS 0.6 %; HEMATOCRIT 46.2 % (42.0-52.0); HEMOGLOBIN 15.4 gm/dL (14.0-18.0); LYMPHOCYTES 19.4 %; MCH 29.4 pg (26.0-34.0); MCHC 33.4 g/dL (28.0-37.0); MCV 88.2 fL (80.0-100.0); MONOCYTES 6.1 %; MPV 9.2 fl. (7.2-11.1); NUCLEATED RBCS 0 /100WBC; PLATELET COUNT* 343 thou/uL (150-400); POLYS 73.6 %; RBC 5.24 mil/uL (4.50-6.00); RDW-CV 14.1 % (10.5-14.5); WBC 13.3 thou/uL (4.0-11.0)
[2019-01-26 19:08] LABS: ANION GAP 10 mmol/L (7-16); BUN 8 mg/dL (7-18); CHLORIDE 102 mmol/L (98-107); CO2 30 mmol/L (21-32); CREATININE 0.8 mg/dL (0.6-1.3); GLUCOSE 105 mg/dL (70-99); POTASSIUM 3.9 mmol/L (3.5-5.1); SODIUM 142 mmol/L (136-145)
[2019-01-26 19:17] LABS: ALBUMIN 3.3 g/dL (3.4-5.0); ALKALINE PHOSPHATASE 94 U/L (46-116); SGOT 13 U/L (15-37); SGPT 22 U/L (30-65); TOTAL BILIRUBIN 0.6 mg/dL (<0.1-1.0); TOTAL PROTEIN 7.1 g/dL (6.4-8.2); TROPONIN-I LEVEL <0.06 ng/mL (<0.06)
[2019-01-26 19:35] LABS: APTT 25.2 Seconds (25.0-31.3); INR 1.1; PROTIME 11.3 Seconds (9.20-11.50)
[2019-01-26 20:17] LABS: URINE BILIRUBIN NEGATIVE (Negative); URINE BLOOD NEGATIVE (Negative); URINE CLARITY CLEAR; URINE COLOR YELLOW; URINE GLUCOSE-RANDOM NEGATIVE (Negative); URINE KETONES NEGATIVE (Negative); URINE LEUKOCYTES-REFLEX NEGATIVE (Negative); URINE NITRITE-REFLEX NEGATIVE (Negative); URINE PROTEIN NEGATIVE (Negative); URINE SPECIFIC GRAVITY <= 1.005 (1.005-1.030); URINE UROBILINOGEN 0.2 E.U./dl (0.2-1.0)
[2019-01-26] MEDS ORDERED: NORCO 5-325 TA1 EAC1 PO (20:28)
[2019-01-26 21:16] VITALS: BP 143/77
--- NOTE | 2019-01-28 13:53 | EKG ---
[place] [address] ELECTROCARDIOGRAM REPORT Name: MARLENE CARTER Room: [facility]#: [id number] Admission: 01/26/19 Attend Phys: Discharge: 01/26/19 Date of : 60 Report #: [id number] THIS REPORT FOR: //name// [facility] ED Test Date: 2019-01-26 Test Time: 18:48:59 Pat Name: MARLENEBRENDA CARTER Department: Room: Gender: M Income Tax Manager: : 1960 Requested By: [place]a [place] Order Number: [id number] MD: Jasper Luna Measurements Intervals [place] Rate: 82 P: [place]: QRS: 13 QRSD: 91 T: 70 QT: 393 QTc: 459 Interpretive Statements Atrial fibrillation Borderline low voltage, extremity leads Compared to ECG 12/10/2018 10:54:20 no change Electronically Signed On 01-28-2019 13:53:09 CDT by Jasper Luna [email or web address] <ELECTRONICALLY SIGNED> By: Jasper Luna MD, [facility] 01/28/19 1353 1848 1848 Jasper Luna MD, FACC /EPI
== END 2019-01-26 21:30 | disposition home or self-care (01) ==
LOC: M.ERS 18:02
PROVIDERS: Physician Assistant
DX: R10.9 Unspecified abdominal pain (principal); J44.9 Chronic obstructive pulmonary disease, unspecified; I48.91 Unspecified atrial fibrillation; I50.20 Unspecified systolic (congestive) heart failure; Z87.891 Personal history of nicotine dependence; Z90.81 Acquired absence of spleen; Z90.49 Acquired absence of other specified parts of digestive tract

== ENCOUNTER 2019-01-28 09:58 | Emergency (ER) | payer OTHER ==
[~2019-01-28] VITALS: Ht 182.9 cm; Wt 129.3 kg
[~2019-01-28 09:58] MED LIST changes: +NORCO 5-325 TA1 EAC1 PO
[2019-01-28 11:04] LABS: HEMATOCRIT 52.1 % (42.0-52.0); MCH 29.1 pg (26.0-34.0); MCHC 33.5 g/dL (28.0-37.0); MCV 87.1 fL (80.0-100.0); MPV 8.9 fl. (7.2-11.1); NUCLEATED RBCS 0 /100WBC; PLATELET COUNT* 355 thou/uL (150-400); RBC 5.98 mil/uL (4.50-6.00); RDW-CV 14.1 % (10.5-14.5); WBC 12.1 thou/uL (4.0-11.0)
[2019-01-28 11:09] LABS: HEMOGLOBIN 17.4 gm/dL (14.0-18.0)
[2019-01-28 11:23] LABS: CALCIUM 9.3 mg/dL (8.5-10.1); CREATININE 0.9 mg/dL (0.6-1.3); POTASSIUM 3.7 mmol/L (3.5-5.1)
[2019-01-28 11:32] LABS: ALBUMIN 3.5 g/dL (3.4-5.0); TOTAL BILIRUBIN 0.5 mg/dL (<0.1-1.0); TOTAL PROTEIN 7.6 g/dL (6.4-8.2)
[2019-01-28 12:34] LABS: ABSOLUTE EOSINOPHILS 0.4 thou/uL (0.0-0.7); ABSOLUTE LYMPHOCYTES 2.9 thou/uL (0.8-5.3); ABSOLUTE MONOCYTES 0.8 thou/uL (0.0-1.2); ATYPICAL LYMPHS 2 %; ATYPICAL MONONUCLEARS 0 %
[2019-01-28 12:37] LABS: LARGE PLATELETS FEW; PLATELET ESTIMATE ADEQUATE
[2019-01-28] MEDS ORDERED: ZANAFLEX4 MG PO (12:42)
[2019-01-28] MEDS ORDERED: MEDROLDOSEPACK PO (12:42)
[2019-01-28 12:45] LABS: SCHISTOCYTES Occasional
[2019-01-28 12:47] LABS: ANISOCYTOSIS 1+; MACROCYTES 1+; POIKILOCYTOSIS 1+; POLYCHROMASIA Occasional
[2019-01-28 13:01] LABS: URINE BLOOD NEGATIVE (Negative); URINE CLARITY CLEAR; URINE COLOR YELLOW; URINE GLUCOSE-RANDOM NEGATIVE (Negative); URINE KETONES TRACE (Negative); URINE LEUKOCYTES-REFLEX NEGATIVE (Negative); URINE NITRITE-REFLEX NEGATIVE (Negative); URINE PROTEIN NEGATIVE (Negative); URINE SPECIFIC GRAVITY 1.015 (1.005-1.030); URINE UROBILINOGEN 0.2 E.U./dl (0.2-1.0)
[2019-01-28 13:03] LABS: ICTOTEST (BILI CONFIRMATORY) Negative (Negative); URINE BILIRUBIN 1+ (Negative)
[2019-01-28 13:56] VITALS: BP 129/87
== END 2019-01-28 13:56 | disposition home or self-care (01) ==
LOC: M.ERS 09:58
PROVIDERS: Nurse Practitioner Family
DX: S39.012A Strain of muscle, fascia and tendon of lower back, initial encounter (principal); J44.9 Chronic obstructive pulmonary disease, unspecified; I48.91 Unspecified atrial fibrillation; I50.20 Unspecified systolic (congestive) heart failure; Z87.891 Personal history of nicotine dependence; Z90.49 Acquired absence of other specified parts of digestive tract; Z90.81 Acquired absence of spleen; X58.XXXA Exposure to other specified factors, initial encounter; Y92.89 Other specified places as the place of occurrence of the external cause; Y93.89 Activity, other specified; Y99.8 Other external cause status

== ENCOUNTER 2019-01-30 12:55 | Emergency (ER) | payer OTHER ==
[~2019-01-30] VITALS: Ht 182.9 cm; Wt 127.0 kg
[~2019-01-30 12:55] MED LIST changes: +ZANAFLEX4 MG PO
[2019-01-30 13:45] LABS: HEMATOCRIT 47.4 % (42.0-52.0); HEMOGLOBIN 15.9 gm/dL (14.0-18.0); MCH 29.4 pg (26.0-34.0); MCHC 33.5 g/dL (28.0-37.0); MCV 87.6 fL (80.0-100.0); MPV 8.7 fl. (7.2-11.1); NUCLEATED RBCS 0 /100WBC; PLATELET COUNT* 364 thou/uL (150-400); RBC 5.41 mil/uL (4.50-6.00); RDW-CV 14.3 % (10.5-14.5); WBC 18.8 thou/uL (4.0-11.0)
[2019-01-30 13:55] LABS: CALCIUM 9.4 mg/dL (8.5-10.1); CREATININE 0.9 mg/dL (0.6-1.3); POTASSIUM 4.6 mmol/L (3.5-5.1)
[2019-01-30 14:00] LABS: ALBUMIN 3.7 g/dL (3.4-5.0); MAGNESIUM 1.8 mg/dL (1.8-2.4); TOTAL BILIRUBIN 0.4 mg/dL (<0.1-1.0); TOTAL PROTEIN 7.5 g/dL (6.4-8.2)
[2019-01-30 14:17] LABS: ABSOLUTE LYMPHOCYTES 2.4 thou/uL (0.8-5.3); ABSOLUTE MONOCYTES 0.2 thou/uL (0.0-1.2); ABSOLUTE NEUTROPHILS 16.2 thou/uL (1.6-8.1); PLATELET ESTIMATE ADEQUATE
[2019-01-30] MEDS ORDERED: NAPROSYN500 MG PO (14:55)
[2019-01-30] MEDS ORDERED: ZOFRAN ODT4 MG PO (14:55)
[2019-01-30] MEDS ORDERED: ZANTAC 150MG T150 MG PO (14:55)
[2019-01-30 15:22] VITALS: BP 130/84
--- NOTE | 2019-01-31 10:49 | EKG ---
[place] [address] ELECTROCARDIOGRAM REPORT Name: MARLENE CARTER Room: [facility]#: [id number] Admission: 01/30/19 Attend Phys: Discharge: 01/30/19 Date of : 60 Report #: [id number] THIS REPORT FOR: //name// [facility] ED Test Date: 2019-01-30 Test Time: 14:13:43 Pat Name: MARLENE EMMA Department: Room: Gender: M Outsole Splicer: : 1960 Requested By: Ramiro Mireles Order Number: [id number] MD: Jasper Luna Measurements Intervals [place] Rate: 87 P: [place]: QRS: 15 QRSD: 92 T: 58 QT: 349 QTc: 420 Interpretive Statements Atrial fibrillation Compared to ECG 01/26/2019 18:48:59 no change Electronically Signed On 01-31-2019 10:49:33 CDT by Jasper Luna [email or web address] <ELECTRONICALLY SIGNED> By: Jasper Luna MD, [facility] 01/31/19 1049 1413 1413 Jasper Luna MD, FACC /EPI
== END 2019-01-30 15:25 | disposition home or self-care (01) ==
LOC: M.ERS 12:55
PROVIDERS: Nurse Practitioner Psychiatric/Mental Health
DX: S39.012A Strain of muscle, fascia and tendon of lower back, initial encounter (principal); R11.0 Nausea; J44.9 Chronic obstructive pulmonary disease, unspecified; I48.91 Unspecified atrial fibrillation; E78.00 Pure hypercholesterolemia, unspecified; I11.0 Hypertensive heart disease with heart failure; I50.20 Unspecified systolic (congestive) heart failure; Z87.891 Personal history of nicotine dependence; Z90.81 Acquired absence of spleen; Z90.49 Acquired absence of other specified parts of digestive tract; X50.1XXA Overexertion from prolonged static or awkward postures, initial encounter; Y92.89 Other specified places as the place of occurrence of the external cause; Y93.89 Activity, other specified; Y99.8 Other external cause status

== ENCOUNTER 2019-03-09 21:30 | Emergency (ER) | payer OTHER ==
[~2019-03-09] VITALS: Ht 182.9 cm; Wt 115.2 kg
[~2019-03-09 21:30] MED LIST changes: +NAPROSYN500 MG PO; +ZANTAC 150MG T150 MG PO; +ZOFRAN ODT4 MG PO
[2019-03-09 21:58] LABS: ABSOLUTE BASOPHILS 0.2 thou/uL (0.0-0.2); ABSOLUTE EOSINOPHILS 0.1 thou/uL (0.0-0.7); ABSOLUTE LYMPHOCYTES 3.2 thou/uL (0.8-5.3); ABSOLUTE MONOCYTES 1.5 thou/uL (0.0-1.2); EOSINOPHILS 0.3 %; HEMATOCRIT 39.8 % (42.0-52.0); HEMOGLOBIN 13.1 gm/dL (14.0-18.0); LYMPHOCYTES 15.9 %; MCH 28.7 pg (26.0-34.0); MCV 86.9 fL (80.0-100.0); MONOCYTES 7.5 %; NUCLEATED RBCS 0 /100WBC; PLATELET COUNT* 341 thou/uL (150-400); POLYS 75.3 %; RBC 4.58 mil/uL (4.50-6.00); RDW-CV 14.9 % (10.5-14.5); WBC 19.9 thou/uL (4.0-11.0)
[2019-03-09 22:16] LABS: INR 1.1; PROTIME 11.4 Seconds (9.20-11.50)
[2019-03-09 22:17] LABS: ANION GAP 8 mmol/L (7-16); BUN 16 mg/dL (7-18); CALCIUM 8.7 mg/dL (8.5-10.1); CHLORIDE 105 mmol/L (98-107); CO2 28 mmol/L (21-32); CREATININE 0.8 mg/dL (0.6-1.3); GLUCOSE 147 mg/dL (70-99); SODIUM 141 mmol/L (136-145)
[2019-03-09 22:28] LABS: ALBUMIN 3.3 g/dL (3.4-5.0); ALKALINE PHOSPHATASE 74 U/L (46-116); NT-PRO BRAIN NAT PEPTIDE 2373 pg/mL (<300); SGOT 8 U/L (15-37); SGPT 24 U/L (30-65); TOTAL BILIRUBIN 0.3 mg/dL (<0.1-1.0); TOTAL PROTEIN 6.6 g/dL (6.4-8.2); TROPONIN-I LEVEL <0.06 ng/mL (<0.06)
[2019-03-10] MEDS ORDERED: AUGMENTIN 875-1 EACH PO (03:48)
[2019-03-10] MEDS ORDERED: PROAIR HFA8.5 GM INH (03:48)
[2019-03-10 03:53] VITALS: BP 129/69
--- NOTE | 2019-03-11 16:57 | EKG ---
[place] [address] ELECTROCARDIOGRAM REPORT Name: MARLENE CARTER Room: [facility]#: [id number] Admission: 03/09/19 Attend Phys: Discharge: 03/10/19 Date of : 60 Report #: [id number] THIS REPORT FOR: //name// [facility] ED Test Date: 2019-03-09 Test Time: 21:38:34 Pat Name: MARLENE CARTER Department: Room: Gender: M Rod Bending Machine Operator: ALICE : 1960 Requested By: Eden Pemberton Order Number: [id number] MD: Hardeep Calles Measurements Intervals [place] Rate: 106 P: [place]: QRS: 16 QRSD: 84 T: 61 QT: 329 QTc: 437 Interpretive Statements Atrial fibrillation Borderline low voltage, extremity leads Compared to ECG 01/30/2019 14:13:43 No significant changes Electronically Signed On 03-11-2019 16:56:53 CDT by Hardeep Calles [email or web address] <ELECTRONICALLY SIGNED> By: Hardeep Calles MD, [facility] 03/11/19 1656 2138 2138 Hardeep Calles MD, FACC /EPI
== END 2019-03-10 03:53 | disposition home or self-care (01) ==
LOC: M.ERS 21:30
PROVIDERS: Emergency Medicine
DX: J44.1 Chronic obstructive pulmonary disease with (acute) exacerbation (principal); I48.91 Unspecified atrial fibrillation; J18.9 Pneumonia, unspecified organism; Z79.899 Other long term (current) drug therapy

== ENCOUNTER 2019-03-30 20:58 | Emergency (ER) | payer OTHER ==
[~2019-03-30] VITALS: Ht 182.9 cm; Wt 114.3 kg
[2019-03-30] MEDS ORDERED: ELIQUIS5 MG PO (21:07)
[2019-03-30] MEDS ORDERED: COZAAR 25 MG TA25 M1 PO (21:07)
[2019-03-30] MEDS ORDERED: CARTIA XT120 M1 PO (21:09)
[2019-03-30] MEDS ORDERED: PREDNISONE 20 M20 M1 PO (21:29)
[2019-03-30] MEDS ORDERED: NORCO 5-325 TA1 EAC1 PO (21:29)
[2019-03-30 21:30] LABS: HEMATOCRIT 41.7 % (42.0-52.0); HEMOGLOBIN 13.9 gm/dL (14.0-18.0); MCH 29.5 pg (26.0-34.0); MCHC 33.2 g/dL (28.0-37.0); MCV 88.8 fL (80.0-100.0); MPV 8.3 fl. (7.2-11.1); NUCLEATED RBCS 0 /100WBC; PLATELET COUNT* 264 thou/uL (150-400); RDW-CV 15.6 % (10.5-14.5)
[2019-03-30 21:36] LABS: ANION GAP 8 mmol/L (7-16); BUN 11 mg/dL (7-18); CALCIUM 8.9 mg/dL (8.5-10.1); CHLORIDE 103 mmol/L (98-107); CO2 28 mmol/L (21-32); CREATININE 0.7 mg/dL (0.6-1.3); GLUCOSE 188 mg/dL (70-99); POTASSIUM 3.9 mmol/L (3.5-5.1); SODIUM 139 mmol/L (136-145)
[2019-03-30 21:40] LABS: APTT 23.9 Seconds (25.0-31.3); PROTIME 10.7 Seconds (9.20-11.50)
[2019-03-30 21:49] LABS: ALBUMIN 3.2 g/dL (3.4-5.0); ALKALINE PHOSPHATASE 74 U/L (46-116); LIPASE 144 U/L (73-393); MAGNESIUM 1.6 mg/dL (1.8-2.4); NT-PRO BRAIN NAT PEPTIDE 1766 pg/mL (<300); SGOT 8 U/L (15-37); SGPT 37 U/L (30-65); TOTAL BILIRUBIN 0.4 mg/dL (<0.1-1.0); TOTAL PROTEIN 6.5 g/dL (6.4-8.2); TROPONIN-I LEVEL <0.06 ng/mL (<0.06)
[2019-03-30 22:17] LABS: ABSOLUTE EOSINOPHILS 0.2 thou/uL (0.0-0.7); ABSOLUTE LYMPHOCYTES 3.6 thou/uL (0.8-5.3); ABSOLUTE MONOCYTES 1.1 thou/uL (0.0-1.2); ABSOLUTE NEUTROPHILS 10.2 thou/uL (1.6-8.1); PLATELET ESTIMATE ADEQUATE
[2019-03-30 22:26] VITALS: BP 104/52
--- NOTE | 2019-04-01 16:53 | EKG ---
[place] [address] ELECTROCARDIOGRAM REPORT Name: MARLENE CARTER Room: [facility]#: [id number] Admission: 03/30/19 Attend Phys: Discharge: 03/30/19 Date of : 60 Report #: [id number] THIS REPORT FOR: //name// [facility] ED Test Date: 2019-03-30 Test Time: 21:07:11 Pat Name: MARLENE CARTER Department: Room: Gender: M Wire Temperer: [place] : 1960 Requested By: Jomar Manuel Order Number: [id number] MD: Jasper Luna Measurements Intervals [place] Rate: 120 P: [place]: QRS: 17 QRSD: 88 T: 77 QT: 314 QTc: 444 Interpretive Statements Atrial fibrillation Nonspecific T abnormalities, lateral leads Compared to ECG 03/09/2019 21:38:34 no change Electronically Signed On 04-01-2019 16:52:59 CDT by Jasper Luna [email or web address] <ELECTRONICALLY SIGNED> By: Jasper Luna MD, [facility] 04/01/19 1652 06 Jasper Luna MD, FACC /EPI
== END 2019-03-30 22:26 | disposition home or self-care (01) ==
LOC: M.ERS 20:58
PROVIDERS: Family Medicine
DX: J44.1 Chronic obstructive pulmonary disease with (acute) exacerbation (principal); I48.2 Chronic atrial fibrillation; F17.210 Nicotine dependence, cigarettes, uncomplicated; I10 Essential (primary) hypertension; Z90.49 Acquired absence of other specified parts of digestive tract; Z79.899 Other long term (current) drug therapy; Z90.81 Acquired absence of spleen

== ENCOUNTER 2019-04-09 17:21 | Emergency (ER) | payer OTHER ==
[~2019-04-09] VITALS: Ht 182.9 cm; Wt 111.1 kg
[~2019-04-09 17:21] MED LIST changes: +CARTIA XT120 M1 PO; +COZAAR 25 MG TA25 M1 PO; +ELIQUIS5 MG PO
[2019-04-09] MEDS ORDERED: LASIX 40 MG TAB40 M2 PO ×2 (18:07→18:30)
[2019-04-09 18:16] VITALS: BP 121/70
[2019-04-09 18:29] LABS: HEMATOCRIT 38.6 % (42.0-52.0); HEMOGLOBIN 13.1 gm/dL (14.0-18.0); MCH 30.6 pg (26.0-34.0); MCHC 33.9 g/dL (28.0-37.0); MCV 90.1 fL (80.0-100.0); MPV 8.8 fl. (7.2-11.1); NUCLEATED RBCS 0 /100WBC; PLATELET COUNT* 278 thou/uL (150-400); RBC 4.28 mil/uL (4.50-6.00); RDW-CV 15.7 % (10.5-14.5); WBC 13.7 thou/uL (4.0-11.0)
[2019-04-09 18:40] LABS: ANION GAP 8 mmol/L (7-16); BUN 10 mg/dL (7-18); CALCIUM 8.4 mg/dL (8.5-10.1); CHLORIDE 106 mmol/L (98-107); CO2 28 mmol/L (21-32); CREATININE 0.7 mg/dL (0.6-1.3); GLUCOSE 175 mg/dL (70-99); POTASSIUM 3.7 mmol/L (3.5-5.1); SODIUM 142 mmol/L (136-145)
[2019-04-09 18:51] LABS: APTT 23.6 Seconds (25.0-31.3); INR 1.1; PROTIME 11.1 Seconds (9.20-11.50)
[2019-04-09 18:54] LABS: ALBUMIN 3.2 g/dL (3.4-5.0); ALKALINE PHOSPHATASE 72 U/L (46-116); CK-MB MASS 1.4 ng/mL (<0.5-3.6); LIPASE 106 U/L (73-393); MAGNESIUM 1.6 mg/dL (1.8-2.4); NT-PRO BRAIN NAT PEPTIDE 1962 pg/mL (<300); SGOT 18 U/L (15-37); SGPT 39 U/L (30-65); TOTAL BILIRUBIN 0.5 mg/dL (<0.1-1.0); TOTAL PROTEIN 6.3 g/dL (6.4-8.2); TROPONIN-I LEVEL <0.06 ng/mL (<0.06)
[2019-04-09 19:27] LABS: ABSOLUTE EOSINOPHILS 0.3 thou/uL (0.0-0.7); ABSOLUTE LYMPHOCYTES 4.8 thou/uL (0.8-5.3); ABSOLUTE MONOCYTES 0.7 thou/uL (0.0-1.2); ABSOLUTE NEUTROPHILS 7.9 thou/uL (1.6-8.1); PLATELET ESTIMATE ADEQUATE
--- NOTE | 2019-04-10 10:24 | EKG ---
[place] [address] ELECTROCARDIOGRAM REPORT Name: MARLENE CARTER Room: [facility]#: [id number] Admission: 04/09/19 Attend Phys: Discharge: 04/09/19 Date of : 60 Report #: [id number] THIS REPORT FOR: //name// [facility] ED Test Date: 2019-04-09 Test Time: 17:53:24 Pat Name: MARLENE EMMA Department: Room: Gender: M Flight Radio Officer: EV : 1960 Requested By: [place]a [place] Order Number: [id number] MD: Jasper Lnua Measurements Intervals [place] Rate: 138 P: [place]: QRS: 22 QRSD: 68 T: 85 QT: 320 QTc: 485 Interpretive Statements Atrial fibrillation Borderline T abnormalities, anterior leads Compared to ECG 03/30/2019 21:07:11 No significant changes Electronically Signed On 04-10-2019 10:24:15 CDT by Jasper Luna [email or web address] <ELECTRONICALLY SIGNED> By: Jasper Luna MD, [facility] 04/10/19 1024 1753 1753 Jasper Luna MD, FACC /EPI
== END 2019-04-09 18:40 | disposition left against medical advice (07) ==
LOC: M.ERS 17:21
PROVIDERS: Emergency Medicine
DX: I48.91 Unspecified atrial fibrillation (principal); I50.9 Heart failure, unspecified; J44.9 Chronic obstructive pulmonary disease, unspecified; I10 Essential (primary) hypertension; Z87.891 Personal history of nicotine dependence; Z90.49 Acquired absence of other specified parts of digestive tract

== ENCOUNTER 2019-04-21 14:18 | Emergency (ER) | payer OTHER ==
[~2019-04-21] VITALS: Ht 182.9 cm; Wt 127.0 kg
[2019-04-21] MEDS ORDERED: AZITHROMYCIN 2250 MG PO (16:25)
[2019-04-21] MEDS ORDERED: MEDROL DOSPAK21 TA1 PO (16:25)
[2019-04-21 16:31] VITALS: BP 142/82
--- NOTE | 2019-04-22 11:59 | EKG ---
[place] [address] ELECTROCARDIOGRAM REPORT Name: MARLENE CARTER Room: [facility]#: [id number] Admission: 04/21/19 Attend Phys: Discharge: 04/21/19 Date of : 60 Report #: [id number] THIS REPORT FOR: //name// [facility] ED Test Date: 2019-04-21 Test Time: 14:28:32 Pat Name: MARLENE CARTER Department: Room: Gender: M Medical Office Clerk: : 1960 Requested By: Garfield Hilliard Order Number: [id number] Nayeli MD: David Rock Measurements Intervals [place] Rate: 91 P: [place]: QRS: 25 QRSD: 111 T: 69 QT: 361 QTc: 445 Interpretive Statements Atrial fibrillation Low voltage, precordial leads Compared to ECG 04/09/2019 17:53:24 Low QRS voltage now present T-wave abnormality no longer present Electronically Signed On 04-22-2019 11:59:33 CDT by David Rock [email or web address] <ELECTRONICALLY SIGNED> By: David Rock MD, [facility] 04/22/19 1159 1428 1428 David Rock MD, FACC /EPI
== END 2019-04-21 16:30 | disposition home or self-care (01) ==
LOC: M.ERS 14:18
DX: J44.1 Chronic obstructive pulmonary disease with (acute) exacerbation (principal); J40 Bronchitis, not specified as acute or chronic; I10 Essential (primary) hypertension; I48.91 Unspecified atrial fibrillation; Z90.49 Acquired absence of other specified parts of digestive tract; Z87.891 Personal history of nicotine dependence; Z90.81 Acquired absence of spleen

== ENCOUNTER 2019-08-27 03:04 | Inpatient (IN) | payer OTHER ==
[~2019-08-27] VITALS: Ht 182.9 cm; Wt 146.5 kg
[~2019-08-27 03:04] MED LIST changes: +MEDROL DOSPAK21 TA1 PO
[2019-08-27] MEDS ORDERED: COZAAR 25 MG TA25 M1 PO (03:14)
[2019-08-27] MEDS ORDERED: LIPITOR 20 MG T20 M1 PO (03:15)
[2019-08-27] MEDS ORDERED: PACERONE200 MG PO (03:16)
[2019-08-27 03:39] LABS: ABSOLUTE BASOPHILS 0.1 thou/uL (0.0-0.2); ABSOLUTE LYMPHOCYTES 1.3 thou/uL (0.8-5.3); ABSOLUTE MONOCYTES 1.3 thou/uL (0.0-1.2); ABSOLUTE NEUTROPHILS 11.3 thou/uL (1.6-8.1); BASOPHILS 0.5 %; EOSINOPHILS 0.1 %; HEMOGLOBIN 14.1 gm/dL (14.0-18.0); LYMPHOCYTES 9.5 %; MCH 29.7 pg (26.0-34.0); MCHC 32.8 g/dL (28.0-37.0); MCV 90.4 fL (80.0-100.0); MONOCYTES 9.6 %; MPV 8.9 fl. (7.2-11.1); NUCLEATED RBCS 0 /100WBC; PLATELET COUNT* 298 thou/uL (150-400); POLYS 80.3 %; RBC 4.75 mil/uL (4.50-6.00); RDW-CV 15.4 % (10.5-14.5)
[2019-08-27 03:43] LABS: BE 10.7 mmol/L (-2 to +3); PO2 90.2 mmHg (75.0-100.0); pH 7.379 (7.340-7.450)
[2019-08-27 03:46] LABS: PCO2 67.3 mmHg (35.0-45.0)
[2019-08-27 03:47] LABS: CALCIUM 8.3 mg/dL (8.5-10.1); CREATININE 0.8 mg/dL (0.6-1.3); POTASSIUM 3.7 mmol/L (3.5-5.1)
[2019-08-27 03:48] LABS: INR 1.1; PROTIME 11.3 Seconds (9.20-11.50)
[2019-08-27 04:02] LABS: ALBUMIN 3.4 g/dL (3.4-5.0); TOTAL BILIRUBIN 0.8 mg/dL (<0.1-1.0); TOTAL PROTEIN 6.7 g/dL (6.4-8.2)
[2019-08-27 04:41] LABS: INFLUENZA A ANTIGEN Positive (Negative); INFLUENZA B ANTIGEN Negative (Negative)
--- NOTE | 2019-08-27 07:37 | NUR ---
PT PLACED ON BIPAP
[2019-08-27 08:39] LABS: URINE BILIRUBIN NEGATIVE (Negative); URINE BLOOD NEGATIVE (Negative); URINE CLARITY CLEAR; URINE COLOR YELLOW; URINE GLUCOSE-RANDOM NEGATIVE (Negative); URINE KETONES NEGATIVE (Negative); URINE LEUKOCYTES-REFLEX NEGATIVE (Negative); URINE NITRITE-REFLEX NEGATIVE (Negative); URINE PROTEIN NEGATIVE (Negative); URINE SPECIFIC GRAVITY 1.015 (1.005-1.030); URINE UROBILINOGEN 0.2 E.U./dl (0.2-1.0)
[2019-08-27 08:40] VITALS: BP 154/72
[2019-08-27 09:30] VITALS: BP 164/72
[2019-08-27] MEDS ORDERED: AMARYL2 MG PO (10:42)
[2019-08-27] MEDS ORDERED: PULMICORT0.5 MG/22 INH (10:44)
[2019-08-27] MEDS ORDERED: SINGULAIR 10 MG10 MG PO (10:45)
[2019-08-27] MEDS ORDERED: RAYOS5 MG PO (10:46)
[2019-08-27] MEDS ORDERED: LOPRESSOR50 MG PO (10:48)
[2019-08-27] MEDS ORDERED: IPRAT-ALBUT 0.5-3 ML INH (10:50)
[2019-08-27] MEDS ORDERED: CARDIZEM SR 60M60 MG PO (10:51)
[2019-08-27 12:35] VITALS: BP 135/58
--- NOTE | 2019-08-27 14:37 | EKG ---
[place] [address] ELECTROCARDIOGRAM REPORT Name: MARLENE CARTER Room: [address] IN .R.#: [id number] Admission: 08/27/19 Attend Phys: Wilmer Hemphill MD Discharge: Date of : 60 Report #: [id number] THIS REPORT FOR: //name// [facility] ED Test Date: 2019-08-27 Test Time: 03:10:48 Pat Name: MARLENE CARTER Department: Room: [facility] Gender: M Program Officer: : 1960 Requested By: Eden Pemberton Order Number: [id number] MD: Hardeep Calles Measurements Intervals [place] Rate: 89 P: 61 IA: 140 QRS: 19 QRSD: 96 T: 77 QT: 377 QTc: 459 Interpretive Statements Sinus rhythm Compared to ECG 04/21/2019 14:28:32 Atrial fibrillation no longer present Electronically Signed On 08-27-2019 14:36:59 MEDICAL OFFICE TECHNOLOGIST by Hardeep Calles [email or web address] <ELECTRONICALLY SIGNED> By: Hardeep Calles MD, [facility] 08/27/19 1436 9 9 Hardeep Calles MD, FACC /EPI
[2019-08-27 16:23] VITALS: BP 129/60
--- NOTE | 2019-08-27 18:50 | NUR ---
PATIENT RESTING IN BED. UP AD MANFRED IN ROOM. 4L PER NASAL CANULA. BIPAP AT HS. MEDICATION RECONSILIATION COMPLETED BY CALL TO PRIMARY CARE PROVIDER DR MODI IN [facility] IN [facility]. HOURLY ROUDNIG COMPLETED FOR [employer].
[2019-08-27 20:00] VITALS: BP 136/56
[2019-08-28 00:33] VITALS: BP 139/63
[2019-08-28 04:00] VITALS: BP 141/67
--- NOTE | 2019-08-28 04:44 | NUR ---
ASSUMED PT CARE AT APPROX 1930. PT IS AWAKE AND ORIENTED X4. VSS ON 4L OF O2/NC. SEARCH MARKETING SPECIALIST IS TRACING SR. ASSESSMENT DONE AND CHARTED. PT REFUSED TO WEAR BIPAP AT HS. EDUCATION GIVEN ON IMPORTANCE OF WEARING BIPAP TO NO AVAIL. PT C/O CHEST/PLEURITIC PAIN THAT IS PARTIALLY RELIEVED BY PAIN MEDS GIVEN PER OCT. FALL PRECAUTIONS IN PLACE. CALL LIGHT WITHIN REACH. HOURLY ROUNDING DONE FOR PT SAFETY.
[2019-08-28 05:27] LABS: HEMATOCRIT 41.6 % (42.0-52.0); HEMOGLOBIN 13.3 gm/dL (14.0-18.0); MCH 29.8 pg (26.0-34.0); MCHC 31.9 g/dL (28.0-37.0); MCV 93.2 fL (80.0-100.0); MPV 9.2 fl. (7.2-11.1); NUCLEATED RBCS 0 /100WBC; PLATELET COUNT* 278 thou/uL (150-400); RBC 4.46 mil/uL (4.50-6.00); RDW-CV 15.1 % (10.5-14.5); WBC 11.6 thou/uL (4.0-11.0)
[2019-08-28 05:50] LABS: CALCIUM 8.2 mg/dL (8.5-10.1); POTASSIUM 4.4 mmol/L (3.5-5.1)
[2019-08-28 06:09] LABS: ABSOLUTE LYMPHOCYTES 0.5 thou/uL (0.8-5.3); ABSOLUTE MONOCYTES 0.1 thou/uL (0.0-1.2); PLATELET ESTIMATE ADEQUATE
[2019-08-28 06:10] LABS: ANISOCYTOSIS 1+; POIKILOCYTOSIS 1+
[2019-08-28 08:00] VITALS: BP 142/61
--- NOTE | 2019-08-28 11:55 | NUR ---
MET WITH PT TO DISCUSS HOME SITUATION/DC PLANNING. PT LIVES ALONE, DRIVES A TRUCK LOCALLY. HE IS INDEPENDENT AND ACTIVE. STATES HE HAS NEBULIZER AND WEARS O2 THRU [facility] JUST AT NIGHT, ONLY HAS CONCENTRATOR. HE PAYS FOR IT OUT OF POCKET. PT IS UNINSURED. HE FOLLOWS WITH DR IDA GROVES AT A 'FREE' CLINIC IN [place]. HE PLANS TO RETURN HOME AT [place]. GAVE COMMUNITY RESOURCES AND SAFETY NET CLINIC INFO. WILL FOLLOW
--- NOTE | 2019-08-28 12:03 | CON ---
[address] [address] CONSULTATION Name: MARLENE CARTER Room: [address] IN M.R.#: [id number] Admission: 08/27/19 Attend Phys: Wilmer Hemphill MD Discharge: Date of : 60 Report #: [id number] THIS REPORT FOR: //name// CC: Wilmer Hemphill [facility] physician/PCP DATE OF SERVICE: 08/27/2019 INFECTIOUS DISEASE CONSULTATION ATTENDING PHYSICIAN: Wilmer Hemphill MD REASON FOR EVALUATION: Influenza A, complicated by pneumonitis, likely bacterial. HISTORY OF PRESENT ILLNESS: Chart reviewed, patient examined. This is a 59-year-old gentleman with known history of COPD, apparently has requirement of nighttime supplemental oxygen, who states he was generally feeling well when he went to sleep yesterday morning, woke up with difficulty breathing. It is not clear that he had fevers, although on presentation, he was noted to have low-grade temperature elevation to 100.5. Denies any chills, shakes or sweats. He does have dry cough, significant abdominal-related complaints noted. He has noted increasing swelling associated with his distal lower extremities and his weight has been somewhat variable. He does note he has had previous Streptococcus pneumoniae vaccines x 2 this year. He attributes to getting sick, receiving the flu shot. ALLERGIES: None known. MEDICATIONS: Include azithromycin, ceftriaxone, methylprednisolone, budesonide, atorvastatin, losartan, apixaban, pantoprazole, p.r.n. analgesics, antiemetics, Tamiflu. 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 SOCIAL HISTORY: Former smoker, fairly regular ethanol, no illicit drug use. FAMILY HISTORY: Noncontributory. REVIEW OF SYSTEMS: As above, noted 10-point review of systems, otherwise unremarkable. PHYSICAL EXAMINATION: GENERAL: He appears somewhat chronically ill, undernourished. [place] [address] CONSULTATION Name: EMMAMARLENE Pancho Room: [address]#: [id number] Admission: 08/27/19 Attend Phys: Wilmer Hemphill MD Discharge: Date of : 60 Report #: [id number] and cooperative. He is not encephalopathic. He has moderate respiratory distress. VITAL SIGNS: Temperature 100.5, pulse 74, respirations 18, and blood pressure is 154/72. SKIN: Warm, dry, no rashes. HEENT: Normocephalic. Extraocular muscles intact. Does have nasal cannula in place. NECK: Supple. LUNGS: Scattered coarse breath sounds. HEART: Regular, distant. I do not appreciate a murmur. ABDOMEN: Obese, soft. There are no apparent peritoneal signs. Nontender. GENITOURINARY: Deferred. RECTAL: Deferred. LABORATORY AND X-RAY DATA: Initial CBC: White count of 14, hemoglobin and hematocrit 14.1 and 43.0, platelets of 298. ABGs: pH 7.379, pCO2 of 67.3, pO2 of 90.2 that was on 4.5 liters nasal cannula oxygen. PT of 11.3, INR of 1.1. Troponin less than 0.06. Electrolytes: Sodium 142, potassium 3.7, chloride 99, bicarbonate is 41, anion gap of 2, BUN and creatinine of 15 and 0.8, and glucose of 107. LFTs unremarkable. Albumin of 3.4. Total protein 6.7. D-dimer 0.25. Lactic acid 0.8. Influenza antigen was positive for influenza A. Chest x-ray: Normal size heart, right upper lobe opacity, question of pneumonitis. Urinalysis unremarkable. ASSESSMENT AND PLAN: Influenza A, suspect complicated by bacterial pneumonitis. We will continue combination therapy with the oseltamivir as well as antibacterials. Remains somewhat tenuous. We will await culture results, go ahead and try to collect the sputum, streptococcal urinary antigen, and MRSA. We will see how he does clinically. <ELECTRONICALLY SIGNED> By: Husam Resendez MD 08/28/19 1203 [id number] Resendez MD /nt
[2019-08-28 12:28] VITALS: BP 115/59
--- NOTE | 2019-08-28 18:52 | NUR ---
ASSUMED PT CARE REPORT RECEIVED FROM NURSE. PT IS AOX4 ON 4 LNC. TRACING SR ON LAMP WIRER. DENIES PAIN. ACCUCHECK, INSULIN GIVEN. NO FURTHER COMPLAINT. ISOLATION MAINTAINED. CALL LIGHT AT REACH. [facility]
[2019-08-28 20:00] VITALS: BP 119/32
[2019-08-29] VITALS (7 sets, daily range): BP systolic 119–143; BP diastolic 47–78
--- NOTE | 2019-08-29 03:40 | NUR ---
PT ALERT ORIENTED. UP AD MANFRED IN ROOM. PAIN MEDICATION GIVEN ONCE. TELEMETRY SHOWS SR. INITAL ASSESSMENT O2 SAT 88% O2 AT 4 LITERS NC. O2 INCREASED TO 5 LITERS NC. 92% WCTM
[2019-08-29 04:32] LABS: ABSOLUTE LYMPHOCYTES 0.4 thou/uL (0.8-5.3); ABSOLUTE MONOCYTES 0.9 thou/uL (0.0-1.2); ABSOLUTE NEUTROPHILS 12.5 thou/uL (1.6-8.1); BASOPHILS 0.1 %; HEMATOCRIT 40.1 % (42.0-52.0); HEMOGLOBIN 12.9 gm/dL (14.0-18.0); LYMPHOCYTES 2.7 %; MCH 29.8 pg (26.0-34.0); MCHC 32.3 g/dL (28.0-37.0); MCV 92.2 fL (80.0-100.0); MONOCYTES 6.3 %; MPV 8.9 fl. (7.2-11.1); NUCLEATED RBCS 0 /100WBC; PLATELET COUNT* 263 thou/uL (150-400); POLYS 90.9 %; RBC 4.35 mil/uL (4.50-6.00); WBC 13.8 thou/uL (4.0-11.0)
[2019-08-29 04:46] LABS: ALBUMIN 2.6 g/dL (3.4-5.0); CREATININE 0.9 mg/dL (0.6-1.3); POTASSIUM 4.9 mmol/L (3.5-5.1); TOTAL BILIRUBIN 0.2 mg/dL (<0.1-1.0); TOTAL PROTEIN 5.9 g/dL (6.4-8.2)
--- NOTE | 2019-08-29 13:23 | NUR ---
Nutrition: screen for BMI >40. Wt stable from prior UBW 318 lb. Albumin low with CRP high, CO2 and BUN also elevated. Steriods and other meds reviewed. Pt has received diet education on past admits. Assess at low-mild nutrition risk at this time. Appetite noted to be fair, recommend offer snacks/supplemnets PRN. RD to follow up 09/04.
--- NOTE | 2019-08-29 16:21 | 2DMMODE ---
[place] [address] 2 D/M-MODE ECHOCARDIOGRAM Name: MARLENE CARTER Room: [address] IN [facility]#: [id number] Admission: 08/27/19 Attend Phys: Wilmer Hemphill, Discharge: Date of : 60 Date of Service: 08/29/19 1620 Report #: [id number] THIS REPORT FOR: //name// APPROVED REPORT Study performed: 08/29/2019 14:05:02 EXAM: Comprehensive 2D, Doppler, and color-flow Echocardiogram Patient Location: In-Patient Room #: [facility] Status: routine BSA: 2.60 HR: 55 bpm BP: 133/73 mmHg Rhythm: NSR Other Information Study Quality: Good Indications Dyspnea 2D Dimensions IVSd: 18.55 (7-11mm) LVOT Diam: 23.04 (18-24mm) LVDd: 52.29 mm PWd: 12.78 (7-11mm) Ascending Ao: 34.10 (22-36mm) LVDs: 44.93 (25-40mm) Aortic Root: 35.34 mm Volumes Left Atrial Volume (Systole) LA ESV Index: 40.90 mL/m2 Aortic Valve AoV Peak Ian.: 1.38 m/s AO Peak Gr.: 7.56 mmHg LVOT Max P.55 mmHg AO Mean Gr.: 4.48 mmHg LVOT Mean P.95 mmHg LVOT Max V: 1.18 m/s AO V2 VTI: 33.85 cm LVOT Mean V: 0.80 m/s JILLIAN (VTI): 3.20 cm2 LVOT V1 VTI: 25.97 cm Mitral Valve E/A Ratio: 1.87 MV Decel. Time: 244.49 ms MV E Max Ian.: 0.97 m/[place] [address] 2 D/M-MODE ECHOCARDIOGRAM Name: MARLENE CARTER Room: [address] IN [facility]#: [id number] Admission: 08/27/19 Attend Phys: Wilmer Hemphill, Discharge: Date of : 60 Date of Service: 08/29/19 1620 Report #: [id number] PHT: 70.90 ms MVA (PHT): 3.10 cm2 TDI E/Lateral E': 9.70 E/Medial E': 9.70 Medial E' Ian.: 0.10 m/s Lateral E' Ian.: 0.10 m/s Pulmonary Valve PV Peak Ian.: 1.09 m/s PV Peak Gr.: 4.79 mmHg Tricuspid Valve RAP Estimate: 5.00 mmHg TR Peak Gr.: 33.56 mmHg RVSP: 38.00 mmHg PA Pressure: 38.00 mmHg Left Ventricle The left ventricle is normal size. There is normal LV segmental wall motion. Borderline concentric left ventricular hypertrophy. Left ventricular systolic function is borderline. LVEF is 50-55%. Grade IV - fixed restrictive diastolic dysfunction. Right Ventricle The right ventricle is normal size. The right ventricular systolic function is normal. Atria Left atrium is mildly dilated. The right atrium size is normal. Aortic Valve The aortic valve is normal in structure. No aortic regurgitation is present. There is no aortic valvular stenosis. Mitral Valve The mitral valve is normal in structure. Mild mitral regurgitation. No evidence of mitral valve stenosis. Tricuspid Valve The tricuspid valve is normal in structure. Trace tricuspid regurgitation. Mild pulmonary hypertension. Pulmonic Valve The pulmonary valve is normal in structure. There is no pulmonic [place] [address] 2 D/M-MODE ECHOCARDIOGRAM Name: MARLENE CARTER Room: [address]#: [id number] Admission: 08/27/19 Attend Phys: Wilmer Hemphill, Discharge: Date of : 60 Date of Service: 08/29/19 1620 Report #: [id number] Great Vessels The aortic root is normal in size. IVC is normal in size and collapses >50% with inspiration. Pericardium There is no pericardial effusion. <Conclusion> The left ventricle is normal size. Borderline concentric left ventricular hypertrophy. Left ventricular systolic function is borderline. LVEF is 50-55%. The right ventricle is normal size. Left atrium is mildly dilated. The right atrium size is normal. The aortic valve is normal in structure. The mitral valve is normal in structure. Mild mitral regurgitation. The tricuspid valve is normal in structure. IVC is normal in size and collapses >50% with inspiration. There is no pericardial effusion. There is normal LV segmental wall motion. <ELECTRONICALLY SIGNED> By: David Rock MD, FACC 08/29/19 [phone] David Rock MD, FACC /INF
[2019-08-29 23:08] LABS: GLYCOHEMOGLOBIN (HGB A1C) 8.8 % (4.8-5.6)
[2019-08-30] VITALS: BP 152/66
[2019-08-30 04:00] VITALS: BP 144/67
--- NOTE | 2019-08-30 05:30 | NUR ---
PT IS ABLE TO COMMUNICATE HIS NEEDS TO STAFF EFFECTIVELY; HE HAS BEEN INFORMED THAT HE SHOULD WATCH HIS CARB AND FLUID INTAKE, BUT HE DOES NOT SEEM VERY INTERESTED IN COMPLYING WITH THOSE RESTRICTIONS. CURRENT PAIN MEDICATION REGIMEN HAS BEEN ADEQUATE FOR CONTROLLING HIS PAIN UP TO THIS TIME. DROPLET ISOLATION FOR POSITIVE FLU SWAB MAINTAINED.
[2019-08-30 08:37] VITALS: BP 149/57
[2019-08-30 12:40] VITALS: BP 143/73
--- NOTE | 2019-08-30 13:19 | NUR ---
CONTINUE TO FOLLOW. IF PT NEEDS ADJUSTMENT TO O2 AT HOME AT [place], CONTACT ABIMAEL/LEONELA. PT IS RENTING O2, IS UNINSURED AND HAS CONCENTRATOR AND NEBULIZER, NO PORTABLE O2. [facility] [phone] FAX [phone]
--- NOTE | 2019-08-30 14:03 | CON ---
[address] [address] CONSULTATION Name: MARLENE CARTER Room: [address] IN .R.#: [id number] Admission: 08/27/19 Attend Phys: Wilmer Hemphill MD Discharge: Date of : 60 Report #: [id number] THIS REPORT FOR: //name// CC: Wilmer Hemphill [facility] physician/PCP DATE OF SERVICE: 08/28/2019 REASON FOR CONSULTATION: I was asked to see this 59-year-old gentleman for ukaxv-hu-tkzbdgd respiratory failure, influenza A, pneumonia, and COPD with acute exacerbation. HISTORY OF PRESENT ILLNESS: He has a history of [id number]-bufs smoking, stopped smoking 2 years ago. He is on oxygen at night. He states that he had a sleep study done 12 years ago, which was negative. He has not had any recent sleep study. He started to have increased shortness of breath, cough with yellow sputum production, fever, chills, body ache a couple of days ago, was brought to the Emergency Room by EMS. He was evaluated a few days ago in the Emergency Room, was given prednisone, but he did not take it. He has chest pain. PAST MEDICAL HISTORY: Atrial fibrillation, status post ablation, on Eliquis; COPD; morbid obesity; diabetes mellitus; hypertension; CHF. ALLERGIES: No known drug allergies. MEDICATIONS: Currently, he is on DuoNeb, Pulmicort, amiodarone, apixaban, azithromycin, Cardizem, Amaryl, ibuprofen, losartan, Solu-Medrol 62.5 every 8 hours, Lopressor, Singulair, Protonix, and Rocephin. SOCIAL HISTORY: History of 00-uvjl-vhsn smoking, stopped smoking 2 years ago. FAMILY HISTORY: Hypertension. REVIEW OF SYSTEMS: As mentioned as above. He has had lower extremity edema. Other systems are otherwise negative. PHYSICAL EXAMINATION: GENERAL: This is a morbidly obese gentleman. VITAL SIGNS: His O2 saturation on 3 liters of oxygen is 94%, respiratory rate 20, heart rate 76, blood pressure 140/67, temperature 36.9. HEENT: Normocephalic, atraumatic. Pupils equal, round, reactive to light. Throat is clear. There is shallow oropharynx. Nose: There is inflamed mucosa. NECK: Short and thick. There is no lymphadenopathy or thyromegaly. CARDIOVASCULAR: Regular rate and rhythm. PMI is nondisplaced. CHEST: Inspection is normal. LUNGS: A few end-expiratory wheezing, bibasilar crackles, [place] [address] CONSULTATION Name: MARLENE CARTER Room: [address] IN [facility].#: [id number] Admission: 08/27/19 Attend Phys: Wilmer Hemphill MD Discharge: Date of : 60 Report #: [id number]. ABDOMEN: Soft and obese. Bowel sounds are good. There is no mass. EXTREMITIES: There is edema. LYMPHATICS: There is no lymphadenopathy. LABORATORY DATA: I reviewed the following lab data: Chest x-ray shows right upper lobe infiltrate. WBC 11.6, on admission was 14; hemoglobin 13.3; platelet 278. Sodium 142, potassium 3.7, chloride 99, CO2 of 41, BUN 15, creatinine 0.8, and glucose 107. Lactic acid 0.8. BNP 2078. Troponin 0.06. Influenza A positive. ABG: pH 7.37, pCO2 of 67, and pO2 of 90 on 50% FIO2. IMPRESSION: 1. Acute on chronic respiratory failure, multifactorial in etiology including pneumonia, influenza A, acute exacerbation of chronic obstructive pulmonary disease, acute diastolic congestive heart failure. 2. Abnormal chest x-ray. 3. Pneumonia. 4. Acute exacerbation of chronic obstructive pulmonary disease. 5. Acute diastolic congestive heart failure. 6. Influenza A. 7. Morbid obesity. I highly suspect he has obstructive sleep apnea-hypopnea syndrome. 8. Ex-smoker. 9. Diabetes mellitus. 10. Hypertension. PLAN AND RECOMMENDATIONS: 1. Titrate FiO2 to keep O2 saturation 91%. 2. Continue bronchodilator. 3. Inhaled corticosteroid. 4. I will change Solu-Medrol to 40 every 8 hours. 5. I will do a CT angiogram. He does have shortness of breath and chest pain and has a right upper lobe infiltrate. 6. Continue Tamiflu. 7. ID is consulted. 8. Continue antibiotics per ID. 9. BiPAP to use p.r.n. during day and continuously at night. 10. I have discussed obstructive sleep apnea-hypopnea syndrome, the importance of diagnosis and treatment. 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 I do recommend a sleep study as an outpatient. 11. Lose weight. 12. May consider Lasix, low dose. 13. The findings and recommendations were discussed with the patient and RN. I have answered all of the patient's questions. He understood and agreed to proceed with the plan. [address] [address] CONSULTATION Name: MARLENE CARTER Pancho Room: [address] IN M.R.#: [id number] Admission: 08/27/19 Attend Phys: Wilmer Hemphill MD Discharge: Date of : 60 Report #: [id number] Thank you very much for allowing me to participate in care of this very nice gentleman. <ELECTRONICALLY SIGNED> By: Morena Yost MD 08/30/19 1403 [id number] Yost MD /heydi
--- NOTE | 2019-08-30 15:01 | NUR ---
PT ORDERS RECEIVED AND ACKNOWLEDGED. PT SEATED EOB IN ROOM. INDICATES UP AD MANFRED IN ROOM W/O DME. PT PERFORMS INDEP TRANSFERS AND GAIT IN ROOM FOR THERAPY. PT VOICES NO STAIRS TO ENTER OR INSIDE APT. PT VOICES NO CONCERNS WITH DISCHARGE TO HOME AND DECLINES PT INTERVENTIONS. PT ORDERS TO DISCHARGE PER PT REQUEST.
--- NOTE | 2019-08-30 16:09 | NUR ---
VSS, ASSUMED CARE IN THE AM, ASSESSMENT PERFORMED AND CHARTED, FALL PRECAUTIONS IN PLACE AND CALL LIGHT IN REACH PT IS A&O4 AND ON 4L NC AND IS UP AD MANFRED, PT IS IN ISO FOR FLU, PT IS TRACING SR ON THE MONITOR, PT STATES PAIN IN BACK AND CHEST, PT HAS TAKEN A SHOWER, WILL FOLLOW WITH PLAN OF CARE.
[2019-08-30 16:33] VITALS: BP 121/71
[2019-08-30 20:44] VITALS: BP 145/70
[2019-08-31] VITALS (7 sets, daily range): BP systolic 108–150; BP diastolic 45–73
--- NOTE | 2019-08-31 05:38 | NUR ---
PT IS ABLE TO COMMUNICATE HIS NEEDS TO STAFF EFFECTIVELY. CURRENT PAIN MEDICATION REGIMEN HAS BEEN ADEQUATE FOR CONTROLLING HIS PAIN UP TO THIS TIME. PT IS MOSTLY NON-COMPLIANT REGARDING CARB INTAKE; MD HAS ADJUSTED INSULIN REGIMEN. DROPLET ISOLATION FOR POSITIVE FLU "A" SWAB MAINTAINED; PT ON 9 DOSE COURSE OF TAMIFLU, LAST TWO DOSES TO BE TAKEN TODAY. RECENT A1C HIGH AT 8.8. POSSIBLE DISCHARGE TOMORROW.
[2019-08-31 08:50] LABS: HEMATOCRIT 43.6 % (42.0-52.0); HEMOGLOBIN 14.2 gm/dL (14.0-18.0); MCH 29.8 pg (26.0-34.0); MCHC 32.7 g/dL (28.0-37.0); MCV 91.1 fL (80.0-100.0); MPV 8.6 fl. (7.2-11.1); RBC 4.79 mil/uL (4.50-6.00); RDW-CV 14.8 % (10.5-14.5); WBC 16.2 thou/uL (4.0-11.0)
[2019-08-31 09:02] LABS: ALBUMIN 2.7 g/dL (3.4-5.0); CALCIUM 8.2 mg/dL (8.5-10.1); CREATININE 0.9 mg/dL (0.6-1.3); MAGNESIUM 1.8 mg/dL (1.8-2.4); PHOSPHORUS* 3.7 mg/dL (2.5-4.9); POTASSIUM 4.6 mmol/L (3.5-5.1)
--- NOTE | 2019-08-31 17:00 | NUR ---
VSS, ASSUMED CARE OF PT IN THE AM, ASSESSMENT PERFORMED BY CLAUDIA COLÓN, PT IS A&O4 AND ON 4L NC AND IS UP AD MANFRED, PT IS TRACING SR WITH PAC ON MONITOR, PT STATES PAIN IN CHEST AND BACK, PT GOAL IS TO SIT UP IN CHAIR AND WALK IN HALLS, WILL FOLLOW WITH PLAN OF CARE AND HOURLY ROUNDS COMPLETED.
[2019-09-01] VITALS: BP 143/65
[2019-09-01 04:00] VITALS: BP 134/73
--- NOTE | 2019-09-01 07:00 | NUR ---
PT IS ABLE TO COMMUNICATE HIS NEEDS TO STAFF EFFECTIVELY. CURRENT PAIN MEDICATION REGIMEN HAS BEEN ADEQUATE FOR CONTROLLING HIS PAIN UP TO THIS TIME. PT REPORTED FEELING "CRUDY" AT SHIFT CHANGE; WAS OBSERVED TO HAVE INCREASED RESPIRATORY RATE AND GENERAL MALAISE. PT REPORTED ONSET OF SYMPTOMS CORRESPONDED WITH RECEIVING NEW ANTIBIOTIC: AZITHROMYCIN. GAVE PT MEDS AND HE BEGAN TO FEEL BETTER. CHEST XR SCHEDULED FOR THIS MORNING. POSSIBLE DISCHARGE ON MONDAY.
[2019-09-01 07:56] VITALS: BP 132/76
--- NOTE | 2019-09-01 10:42 | NUR ---
VSS, ASSUMED CARE OF PT THIS AM, ASSESSMENT PERFORMED AND CHARTED, FALL PRECAUTIONS IN PLACE AND CALL LIGHT IN REACH, PT IS A&O4 AND IS UP AD MANFRED, ON 4L NC AND IS IN ISO FOR FLU, PT STATES PAIN IN BACK AND CHEST, R/T COUGH, PT GOAL IS TOIMPROVE BREATHING AND WALK IN HALLS AND SIT UP IN CHAIR, PT IS TRACING SR ON THE MONITOR,
[2019-09-01 12:34] VITALS: BP 118/64
[2019-09-01 17:05] VITALS: BP 118/57
[2019-09-01 20:00] VITALS: BP 127/65
[2019-09-02] VITALS (7 sets, daily range): BP systolic 103–155; BP diastolic 46–76
[2019-09-02 05:57] LABS: HEMATOCRIT 40.5 % (42.0-52.0); HEMOGLOBIN 13.2 gm/dL (14.0-18.0); MCH 29.6 pg (26.0-34.0); MCHC 32.7 g/dL (28.0-37.0); MCV 90.4 fL (80.0-100.0); MPV 9.4 fl. (7.2-11.1); RBC 4.47 mil/uL (4.50-6.00); RDW-CV 14.6 % (10.5-14.5)
[2019-09-02 06:24] LABS: CALCIUM 7.7 mg/dL (8.5-10.1); CREATININE 0.8 mg/dL (0.6-1.3); MAGNESIUM 1.9 mg/dL (1.8-2.4); POTASSIUM 3.9 mmol/L (3.5-5.1)
--- NOTE | 2019-09-02 07:37 | NUR ---
PT CARE ASSUMED AT 1930. SAT MAINTAINED IN O2. ALERT AND ORIENETED X4. CALL LIGHT WITHIN REACH AND BED IN LOW POSITION. PT IS NON COMPLIANT WITH HIS DIET, EDUCATION GIVEN, NEEDS REINFORCEMENT. C/O PAIN, MEDICATION GIVEN PER EMAR. HOURLY ROUNDING DONE FOR PT SAFETY.
[2019-09-02] MEDS ORDERED: KEFLEX500 M2 PO (11:30)
[2019-09-02] MEDS ORDERED: PREDNISONE 20 M20 MG PO (11:33)
[2019-09-02] MEDS ORDERED: CEFDINIR300 MG PO (11:36)
--- NOTE | 2019-09-02 12:15 | NUR ---
CONTINUE TO FOLLOW, NOTED DC ORDERS. PT HAD RA/AMB SATS DONE AND NEEDS 8L OF O2 WITH AMBULATION. PULM DR HERE AND MADE AWARE. SPOKE WITH PT, HE STATES HE CANNOT AFFORD THAT AND HE MIGHT WELL 'GO SHOOT MYSELF.' ASKED PT IF HE HAD A PLAN, STATES NO GUN AND NOT 'SERIOUS' BUT THAT HE IS 'LOSING HIS JOB, HIS LIFE, ETC' ATTEMPTED TO TALK WITH PT ABOUT RESOURCES OR OPTIONS AND HE DENIES HAVING ANYONE WHO COULD ASSIST. PULMONARY DR CAME IN ROOM AT THAT TIME AND DC CANCELED. UPDATED DR ANGUIANO AND PT HAS TELE PSYCH CONSULT. PT HAS O2 CONC THRU [facility], CONTACTED LEONELA/ABIMAEL TO CHECK ON OTHER EQUIPMENT AND PAYMENT SOURCE. SHE STATED THEY HAD A BCBS INFO ON FILE AND WILL SENT TO CM. ONCE RECEIVED WILL ASK PRECERT TO VERIFY. WILL FOLLOW
--- NOTE | 2019-09-02 19:28 | NUR ---
ASSUSMED CARE OF PT APPROX 0730. REASSESSMENT COMPLETED CHARTED. MEDICATIONS GIVEN CHARTED. PT WANTED TO GO HOME TODAY, PT NOT ABLE TO BE DISCHARGED DUE TO O2 NEEDS. THIS WAS DISCUSSED WITH PT BY PROVIDER. PT MADE A SUICIDAL COMMENT TO THE PART MAKER THAT WAS REPORTED TO THE PROVIDER. PT WANTED TO GO HOME AMA THIS AFTERNOON. PT CARE DISCUSSED WITH THE PT AND EXPLAINED THE RISKS OF LEAVING AMA. PT WANTED TIME TO THINK ABOUT IT AND THIS EVENING THE PT DECIDED TO STAY. PT HAD TELE PSYC CONSULT TODAY. PSYC REPORT ON CHART. SAFTEY PRECAUTION UTILIZED, HOURLY ROUNDED
[2019-09-03 00:54] VITALS: BP 131/71
[2019-09-03 04:00] VITALS: BP 129/59
--- NOTE | 2019-09-03 05:28 | NUR ---
PT CARE ASSUMED AT 1930. SAT MAINTAINED IN O2. ALERT AND ORIENTED X4. C/O PAIN, MEDICATION GIVEN PER EMAR. PT IS NON COMPLIANT WITH HIS DIET, EDUCATION GIVEN, NEEDS REINFORCEMENT. CALL LIGHT WITHIN REACH AND BED IN LOW POSITION. HOURLY ROUNDING DONE FOR PT SAFETY.
[2019-09-03 08:00] VITALS: BP 119/80
[2019-09-03 13:23] VITALS: BP 115/54
--- NOTE | 2019-09-03 14:35 | NUR ---
MET WITH PT IN ROOM. INFORMED HIM THAT HE DOES HAVE ACTIVE INSURANCE WITH [employer] AND PRESENTED HIM WITH BENEFITS INFORMATION. 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 MESSAGE LEFT FOR PT'S BOSS AT [facility] [employer] . PT STILL ON 8L NC WITH AMBULATION AND NOT GOING TO BE DISCHARGED UNTIL HE HAS LESS O2 REQUIREMENTS PER PULM. CM WILL CONTINUE TO FOLLOW
[2019-09-03 17:42] VITALS: BP 113/56
--- NOTE | 2019-09-03 18:39 | NUR ---
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 PT RE-EDUCATED ON DIABETIC DIET AND FLUID RESTRICTION, HOURLY ROUNDING COMPLETED.
[2019-09-03 20:00] VITALS: BP 123/66
[2019-09-04] VITALS (7 sets, daily range): BP systolic 95–141; BP diastolic 42–72
[2019-09-04 05:42] LABS: HEMATOCRIT 38.4 % (42.0-52.0); HEMOGLOBIN 12.5 gm/dL (14.0-18.0); MCH 29.5 pg (26.0-34.0); MCHC 32.6 g/dL (28.0-37.0); MCV 90.5 fL (80.0-100.0); MPV 8.8 fl. (7.2-11.1); NUCLEATED RBCS 0 /100WBC; PLATELET COUNT* 245 thou/uL (150-400); RBC 4.24 mil/uL (4.50-6.00); RDW-CV 14.5 % (10.5-14.5)
--- NOTE | 2019-09-04 05:45 | NUR ---
PT CARE ASSUMED AT 1930. SAT MAINTAINED IN O2. ALERT AND ORIENTED X4. C/O PAIN, MEDICATION GIVEN PER EMAR. CALL LIGHT WITHIN REACH AND BED IN LOW POSITION. SOB WITH EXERTION. HOURLY ROUNDING DONE FOR PT SAFETY.
[2019-09-04 06:10] LABS: ALBUMIN 2.3 g/dL (3.4-5.0); CALCIUM 8.1 mg/dL (8.5-10.1); CREATININE 0.7 mg/dL (0.6-1.3); POTASSIUM 4.5 mmol/L (3.5-5.1); TOTAL BILIRUBIN 0.4 mg/dL (<0.1-1.0); TOTAL PROTEIN 5.9 g/dL (6.4-8.2)
[2019-09-04 06:30] LABS: ABSOLUTE EOSINOPHILS 0.4 thou/uL (0.0-0.7); ABSOLUTE LYMPHOCYTES 3.4 thou/uL (0.8-5.3); ABSOLUTE MONOCYTES 0.9 thou/uL (0.0-1.2); ABSOLUTE NEUTROPHILS 13.3 thou/uL (1.6-8.1); ANISOCYTOSIS 1+; PLATELET ESTIMATE ADEQUATE; POIKILOCYTOSIS 1+; TOXIC GRANULATION Occasional
--- NOTE | 2019-09-04 11:26 | NUR ---
Nutrition: reassessment. Pt noncompliant with diet, possibly wants to leave AMA. Alb 2.5, prealb 20.7, WBC 18. 2gm Na diet. Wt up some - 327#. Will continue to follow up per protocol. Mild nutrition risk.
--- NOTE | 2019-09-04 11:33 | NUR ---
NO DC PLANS TODAY. WILL STILL ON HIGH AMOUNT OF O2 FOR AMBULATION. PER NURSE RT WILL REPEAT EXERCISE STUDY LATER TODAY OR TOMORROW
[2019-09-05 04:00] VITALS: BP 116/65
[2019-09-05 05:41] LABS: ABSOLUTE BASOPHILS 0.1 thou/uL (0.0-0.2); ABSOLUTE EOSINOPHILS 0.1 thou/uL (0.0-0.7); ABSOLUTE LYMPHOCYTES 2.1 thou/uL (0.8-5.3); ABSOLUTE NEUTROPHILS 14.5 thou/uL (1.6-8.1); BASOPHILS 0.4 %; EOSINOPHILS 0.8 %; HEMATOCRIT 37.2 % (42.0-52.0); HEMOGLOBIN 11.9 gm/dL (14.0-18.0); LYMPHOCYTES 11.8 %; MCH 29.4 pg (26.0-34.0); MCHC 32.1 g/dL (28.0-37.0); MCV 91.4 fL (80.0-100.0); MONOCYTES 5.7 %; NUCLEATED RBCS 0 /100WBC; PLATELET COUNT* 271 thou/uL (150-400); POLYS 81.3 %; RBC 4.07 mil/uL (4.50-6.00); RDW-CV 14.4 % (10.5-14.5); WBC 17.8 thou/uL (4.0-11.0)
[2019-09-05 05:54] LABS: CALCIUM 8.3 mg/dL (8.5-10.1); CREATININE 0.9 mg/dL (0.6-1.3); POTASSIUM 4.3 mmol/L (3.5-5.1)
--- NOTE | 2019-09-05 06:51 | NUR ---
PT SLEPT ON AND OFF THIS SHIFT. ASSESSMENT DOCUMENTED. MEDS GIVEN PER E-OCT. IV PATENT. PT REPORTED UNCONTROLLED PAIN IN HIS LOWER EXTREMETIES, DR NOTIFIED, ORDERS RECIEVED. PT UP WALKING PART OF SHIFT. PT NON COMPLIANT WITH FLUID RESTRICTION. WILL CONTINUE WITH PLAN OF CARE.
[2019-09-05 08:00] VITALS: BP 127/68
[2019-09-05 11:42] VITALS: BP 156/60
[2019-09-05 15:51] VITALS: BP 113/52
[2019-09-05 20:00] VITALS: BP 128/57
[2019-09-06] VITALS: BP 123/67
[2019-09-06 03:43] VITALS: BP 125/64
[2019-09-06 05:16] LABS: ABSOLUTE EOSINOPHILS 0.1 thou/uL (0.0-0.7); ABSOLUTE LYMPHOCYTES 1.7 thou/uL (0.8-5.3); ABSOLUTE MONOCYTES 0.8 thou/uL (0.0-1.2); ABSOLUTE NEUTROPHILS 11.9 thou/uL (1.6-8.1); BASOPHILS 0.3 %; EOSINOPHILS 0.6 %; HEMATOCRIT 38.8 % (42.0-52.0); HEMOGLOBIN 12.5 gm/dL (14.0-18.0); LYMPHOCYTES 11.6 %; MCH 29.4 pg (26.0-34.0); MCHC 32.2 g/dL (28.0-37.0); MCV 91.3 fL (80.0-100.0); MONOCYTES 5.7 %; MPV 8.8 fl. (7.2-11.1); NUCLEATED RBCS 0 /100WBC; PLATELET COUNT* 305 thou/uL (150-400); POLYS 81.8 %; RBC 4.25 mil/uL (4.50-6.00); RDW-CV 14.7 % (10.5-14.5); WBC 14.5 thou/uL (4.0-11.0)
--- NOTE | 2019-09-06 05:47 | NUR ---
PT SLEPT MOST OF SHIFT. ASSESSMENT DOCUMENTED. MEDS GIVEN PER E-OCT. IV PATENT. PAIN MEDS GIVEN PER E-OCT. PT WALKING AROUND UNIT THIS SHIFT. PT ATE SEVERAL SNACKS, DIET EDUCATION GIVEN. WILL CONTINUE WITH PLAN OF CARE.
[2019-09-06 05:55] LABS: ALBUMIN 2.5 g/dL (3.4-5.0); CALCIUM 8.2 mg/dL (8.5-10.1); CREATININE 1.1 mg/dL (0.6-1.3); POTASSIUM 4.7 mmol/L (3.5-5.1); TOTAL BILIRUBIN 0.2 mg/dL (<0.1-1.0)
[2019-09-06 08:00] VITALS: BP 127/58
[2019-09-06 11:46] VITALS: BP 129/68
--- NOTE | 2019-09-06 12:38 | NUR ---
NO DISCHARGE PLANS OVER THE WEEKEND-PT WAS STARTED ON IV ABX FOR CELLULITIS. PT REQUIRING 4 L O2 PER NC. IF PT IS TO LEAVE THIS WEEKEND PLEASE NOTIFY [facility] FOR O2 DELIVERY. DENIES NEED FOR HH
[2019-09-06 17:43] VITALS: BP 112/94
--- NOTE | 2019-09-06 20:35 | NUR ---
ASSUMED PT CARE AT 0730. ASSESSMENT COMPLETED CHARTED. ABLE TO MAKE NEEDS KNOWN. UP AD MANFRED. C/O BILATERAL LEG PAIN, GAVE PRN PAIN MEDICATION PER EMAR. STILL C/O PAIN AFTER AND ASKING FOR STRONGER MEDICATION. NOTIFIED DR AND N.N.O. GIVEN. PT SITTING UP IN RECLINER WORKING ON A CROSSWORD PUZZLE MOST OF THE DAY. O2 AT 3L WHICH IS BETTER THAN BEFORE. HOPING TO GO HOME TOMORROW. WILL CONTINUE TO MONITOR.
[2019-09-06 21:11] VITALS: BP 119/62
[2019-09-07] VITALS: BP 123/57
[2019-09-07 04:00] VITALS: BP 131/71
[2019-09-07 05:23] LABS: ABSOLUTE BASOPHILS 0.1 thou/uL (0.0-0.2); ABSOLUTE EOSINOPHILS 0.1 thou/uL (0.0-0.7); ABSOLUTE LYMPHOCYTES 1.8 thou/uL (0.8-5.3); ABSOLUTE MONOCYTES 1.2 thou/uL (0.0-1.2); ABSOLUTE NEUTROPHILS 14.2 thou/uL (1.6-8.1); BASOPHILS 0.8 %; EOSINOPHILS 0.4 %; HEMATOCRIT 37.7 % (42.0-52.0); HEMOGLOBIN 12.2 gm/dL (14.0-18.0); LYMPHOCYTES 10.4 %; MCH 29.2 pg (26.0-34.0); MCHC 32.3 g/dL (28.0-37.0); MCV 90.5 fL (80.0-100.0); MONOCYTES 6.8 %; MPV 8.8 fl. (7.2-11.1); NUCLEATED RBCS 0 /100WBC; PLATELET COUNT* 314 thou/uL (150-400); POLYS 81.6 %; RBC 4.16 mil/uL (4.50-6.00); RDW-CV 14.6 % (10.5-14.5); WBC 17.4 thou/uL (4.0-11.0)
[2019-09-07 05:42] LABS: ALBUMIN 2.4 g/dL (3.4-5.0); CALCIUM 8.1 mg/dL (8.5-10.1); CREATININE 0.9 mg/dL (0.6-1.3); POTASSIUM 4.6 mmol/L (3.5-5.1); TOTAL BILIRUBIN 0.3 mg/dL (<0.1-1.0); TOTAL PROTEIN 6.8 g/dL (6.4-8.2)
[2019-09-07 05:46] LABS: PREALBUMIN 19.4 mg/dL (18.0-35.7)
[2019-09-07 08:00] VITALS: BP 123/70
--- NOTE | 2019-09-07 09:14 | NUR ---
PT IS ABLE TO COMMUNICATE HIS NEEDS TO STAFF EFFECTIVELY. 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
[2019-09-07 12:08] VITALS: BP 126/51
--- NOTE | 2019-09-07 13:14 | NUR ---
ASSUMED PT CARE AT 0800, AOX4, UP AD MANFRED, O2 SAT 90'S 3L NC. TRACING SR ON TELE. PT COMPLAINS OF BILATERAL LEG PAIN. EDEMA AND RASHES NOTED ON BILATERAL LEG. PAIN MEDS GIVEN ORDERED. PT ON FLUID RESTRICTION. PT LAST BM TODAY. VSS, AM ASSESSMENT CHARTED, MEDS GIVEN PER MAR, CALL LIGHT WITHIN REACH, HOURLY ROUNDING WILL CONTINUE TO MONITOR.
[2019-09-07 17:11] VITALS: BP 127/70
[2019-09-07 20:33] VITALS: BP 118/63
[2019-09-08 00:08] VITALS: BP 123/70
[2019-09-08 04:27] VITALS: BP 101/50
[2019-09-08 08:00] VITALS: BP 122/49
--- NOTE | 2019-09-08 08:00 | NUR ---
PT IS ABLE TO COMMUNICATE HIS NEEDS TO STAFF EFFECTIVELY. CURRENT PAIN MEDICATION REGIMEN HAS BEEN ADEQUATE FOR CONTROLLING HIS PAIN UP TO THIS TIME. POSSIBLE DISCHARGE TODAY OR TOMORROW. PT STILL ON OXYGEN; WILL LIKELY NEED O2 NEEDS EVALUATION PRIOR TO DISCHARGE.
[2019-09-08] MEDS ORDERED: HUMALOG100 UNIT/1 SUBQ (11:31)
[2019-09-08] MEDS ORDERED: MINOCYCLINE HC100 M2 PO (11:31)
[2019-09-08] MEDS ORDERED: CEFDINIR300 MG PO (11:31)
[2019-09-08] MEDS ORDERED: PROTONIX40 M1 PO (11:31)
[2019-09-08] MEDS ORDERED: GABAPENTIN 100100 MG PO (11:31)
[2019-09-08] MEDS ORDERED: LANTUS SUBQ (11:31)
[2019-09-08] MEDS ORDERED: PERCOCET 10-321 EACH PO (11:31)
--- NOTE | 2019-09-08 11:32 | NUR ---
ASSUMED PT CARE AT 0800, AOX4, UP AD MANFRED, O2 SAT 90'S 3L NC. TRACING SR ON TELE. PT COMPLAINS OF BILATERAL LEG PAIN. PAIN MEDS GIVEN ORDERDED. PT ACCU CHECK. PT FOR DISCHARGE. VSS, AM ASSESSMENT CHARTED, MEDS GIVEN PER MAR. WILL CONTINUE TO MONITOR.
[2019-09-08 12:26] VITALS: BP 108/47
[2019-09-08 14:00] VITALS: BP 108/47
--- NOTE | 2019-09-08 17:08 | NUR ---
DISCHARGED PLAN DISCUSS WITH THE PT. MEDICATION PACKET/SCRIPT GIVEN. REMINDED TO FOLLOW UP WITH ID, PCP. IV, TELE REMOVED. ALL BELONGINGS PACKED AND CHECKED. LEFT THE UNIT AT 1650.
== END 2019-09-08 16:55 | disposition home or self-care (01) | DRG 193 ==
LOC: M.ERS 03:04 → M.TBA-ER 04:20 → M.2W 04:20
PROVIDERS: Emergency Medicine; Family Medicine; Internal Medicine; Internal Medicine Pulmonary Disease; ADMIT Internal Medicine
PROC: 5A09357 Assistance with Respiratory Ventilation, Less than 24 Consecutive Hours, Continuous Positive Airway Pressure (ICD-10-PCS; principal; 2019-08-27)
DX: J10.00 Influenza due to other identified influenza virus with unspecified type of pneumonia (principal); J96.21 Acute and chronic respiratory failure with hypoxia; E43 Unspecified severe protein-calorie malnutrition; I50.41 Acute combined systolic (congestive) and diastolic (congestive) heart failure; I42.9 Cardiomyopathy, unspecified; J44.1 Chronic obstructive pulmonary disease with (acute) exacerbation; Z68.41 Body mass index [BMI] 40.0-44.9, adult; I11.0 Hypertensive heart disease with heart failure; I48.91 Unspecified atrial fibrillation; E11.65 Type 2 diabetes mellitus with hyperglycemia; E66.01 Morbid (severe) obesity due to excess calories; G47.33 Obstructive sleep apnea (adult) (pediatric); Z91.19 Patient's noncompliance with other medical treatment and regimen; Z90.49 Acquired absence of other specified parts of digestive tract; Z90.81 Acquired absence of spleen; Z87.891 Personal history of nicotine dependence; Z82.49 Family history of ischemic heart disease and other diseases of the circulatory system

== ENCOUNTER 2020-01-25 11:44 | Observation (INO) | payer OTHER ==
[~2020-01-25] VITALS: Ht 182.9 cm; Wt 134.6 kg
[~2020-01-25 11:44] MED LIST changes: +AMARYL2 MG PO; +CARDIZEM SR 60M60 MG PO; +GABAPENTIN 100100 MG PO; +HUMALOG100 UNIT/1 SUBQ; +KEFLEX500 M2 PO; +LANTUS SUBQ; +LIPITOR 20 MG T20 M1 PO; +LOPRESSOR50 MG PO; +MINOCYCLINE HC100 M2 PO; +PACERONE200 MG PO; +PERCOCET 10-321 EACH PO; +PULMICORT0.5 MG/22 INH; +RAYOS5 MG PO; +SINGULAIR 10 MG10 MG PO
[2020-01-25 11:49] VITALS: BP 107/74
[2020-01-25 12:20] LABS: HEMOGLOBIN 13.5 gm/dL (14.0-18.0); MCH 29.8 pg (26.0-34.0); MCHC 33.9 g/dL (28.0-37.0); MPV 8.9 fl. (7.2-11.1); NUCLEATED RBCS 0 /100WBC; PLATELET COUNT* 310 thou/uL (150-400); RBC 4.54 mil/uL (4.50-6.00); RDW-CV 13.5 % (10.5-14.5); WBC 18.5 thou/uL (4.0-11.0)
[2020-01-25 12:28] LABS: APTT 23.7 Seconds (25.0-31.3); CREATININE 0.9 mg/dL (0.6-1.3); INR 0.9; PROTIME 9.7 Seconds (9.20-11.50)
[2020-01-25 12:29] LABS: POTASSIUM 4.8 mmol/L (3.5-5.1)
[2020-01-25 12:38] LABS: TOTAL BILIRUBIN 0.2 mg/dL (<0.1-1.0); TOTAL PROTEIN 6.9 g/dL (6.4-8.2)
[2020-01-25 12:57] LABS: ABSOLUTE LYMPHOCYTES 3.5 thou/uL (0.8-5.3); ANISOCYTOSIS 1+; PLATELET ESTIMATE ADEQUATE
[2020-01-25 12:58] LABS: POIKILOCYTOSIS 1+
[2020-01-25 13:40] VITALS: BP 132/61
[2020-01-25 13:50] VITALS: BP 133/61
[2020-01-25] MEDS ORDERED: ASA81BEC PO (14:57)
[2020-01-25 17:05] VITALS: BP 127/55
--- NOTE | 2020-01-25 18:59 | NUR ---
RECEIVED REPORT FROM SHOE PARTS MOLDER RUSSELL. PT ARRIVED TO TELE FLOOR AROUND 1350. PT ORIENTED TO ROOM BED AND CALL LIGHT. ADMISSION ASSESSMENT, HISTORY AND EDUCATION COMPLETED CHARTED. PT NOT HUNGRY AT DINNER AND REFUSED TO EAT MUCH. PT REPORTED PAIN TO CHEST THIS AFTERNOON FROM COUGHING, PO PAIN MEDICATION GIVEN WITH PARTIAL RELIEF. PT UP WITH SBA TO BATHROOM TO VOID, URINE SAMPLE RETREIVED AND SENT DOWN TO LAB. HOME MEDS REORDERED. CILNICAL SCIENTIST IN PLACE. PT CURRENTLY SITTING UP ON THE SIDE OF THE BED. CALL LIGHT IS WITHIN REACH. HOURLY ROUNDING PERFORMED. FALL PRECAUTIONS IN PLACE.
[2020-01-25 20:00] VITALS: BP 136/79
[2020-01-25 23:50] LABS: AMP/METHAMP Negative (Negative); BARBITURATES Negative (Negative); BENZODIAZEPINES Negative (Negative); COCAINE Negative (Negative); METHADONE Negative (Negative); OPIATES POSITIVE (Negative); PCP Negative (Negative); THC Negative (Negative)
[2020-01-26] VITALS: BP 141/69
[2020-01-26 04:00] VITALS: BP 147/78
[2020-01-26 04:13] LABS: HEMATOCRIT 41.6 % (42.0-52.0); HEMOGLOBIN 13.8 gm/dL (14.0-18.0); MCH 29.5 pg (26.0-34.0); MCHC 33.1 g/dL (28.0-37.0); MCV 89.2 fL (80.0-100.0); MPV 9.2 fl. (7.2-11.1); RBC 4.67 mil/uL (4.50-6.00); RDW-CV 13.8 % (10.5-14.5); WBC 24.7 thou/uL (4.0-11.0)
[2020-01-26 04:34] LABS: ALBUMIN 3.1 g/dL (3.4-5.0); CALCIUM 8.4 mg/dL (8.5-10.1); CREATININE 1.3 mg/dL (0.6-1.3); MAGNESIUM 2.1 mg/dL (1.8-2.4); PHOSPHORUS* 3.5 mg/dL (2.5-4.9); POTASSIUM 4.5 mmol/L (3.5-5.1)
--- NOTE | 2020-01-26 05:45 | NUR ---
ASSUMED PT CARE AT APPROX 1930. PT IS AWAKE AND ORIENTED X4. PT IS TRACING SR ON THE MANUAL WINDER. ASSESSMENT DONE AND CHARTED. PT C/O CHEST PAIN WHEN HE COUGHS, PO PAIN MEDICATIONS GIVEN PER MAR WITH PARTIAL RELIEF. NO ACUTE CHANGES OVERNIGHT. PT IS REQUESTING TO GET IV PAIN MEDICATIONS, PHYSICIAN OR SCRUB TECH INFORMED, NO NEW ORDERS RECIEVED. WILL CONTINUE TO MONITOR PT.
[2020-01-26 08:38] VITALS: BP 140/73
[2020-01-26 12:21] VITALS: BP 125/68
[2020-01-26 16:04] VITALS: BP 136/64
--- NOTE | 2020-01-26 18:58 | NUR ---
PT SAT UP AT THE SIDE OF THE BED T/O DAY PAIN CONTROLLED T/O DAY FOR THE MOST PART BLOOD SUGARS STILL HIGH PT IS HOMELESS AND NONCOMPLIANT PLAN FOR CASE MANAGEMENT HOPEFULLY TO DISCUSS WITH HIM OPTIONS CALL LIGHT IN REACH
[2020-01-26 20:00] VITALS: BP 116/64
[2020-01-27] VITALS: BP 128/55
[2020-01-27 04:00] VITALS: BP 120/68
[2020-01-27 07:45] VITALS: BP 137/77
--- NOTE | 2020-01-27 10:45 | NUR ---
Nutrition: Pt admitetd with COPD exac. 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 He lives alone. He just started receiving food stamps and now has a crock pot. We discussed meal ideas to add fruits and veggies. He eats a lot of canned soups. We discussed more affordable options as well, such as frozen produce vs fresh. All questions answered. Encouraged him to call RD with further questions. Defer further assessment at this time.
--- NOTE | 2020-01-27 11:16 | EKG ---
[place] [address] ELECTROCARDIOGRAM REPORT Name: MARLENE CARTER Room: [address] ADM IN .R.#: [id number] Admission: 01/25/20 Attend Phys: Geni mir Sa Discharge: Date of : 60 Date of Service: 01/25/20 1154 Report #: [id number] THIS REPORT FOR: //name// [facility] ED Test Date: 2020-01-25 Test Time: 11:54:03 Pat Name: MARLENE CARTER Department: Room: [facility] Gender: M Biomechanical Engineer: : 1960 Requested By: Jomar Manuel Order Number: [id number] MD: Jasper Luna Measurements Intervals [place] Rate: 79 P: 66 HI: 152 QRS: 24 QRSD: 100 T: 61 QT: 378 QTc: 434 Interpretive Statements Sinus rhythm abnormal r wave progression Compared to ECG 08/27/2019 03:10:48 no change Electronically Signed On 01-27-2020 11:15:14 CDT by Jasper Luna [email or web address] <ELECTRONICALLY SIGNED> By: Jasper Luna MD, FAC 01/27/20 1115 1154 1154 Jasper Luna MD, MERGED WITH [facility] /EPI
[2020-01-27 12:00] VITALS: BP 149/62
--- NOTE | 2020-01-27 14:00 | NUR ---
MET WITH [employer]. SAID HE HAS BEEN OUT OF A JOB FOR ABOUT 6 MONTHS. HAS BEEN HOMELESS FOR ABOUT 2 WEEKS. SAID HIS LANDLORD WORKED WITH HIM FOR AWHILE BUT FINALLY COULDNT DUE TO NO RENT PAYMENTS. HE HAS APPLIED FOR EMERGENCY HOUSING BUT THERE IS A LONG WAIT LIST. HE DOES QUALIFY FOR FOOD STAMPS AND HE HAS APPLIED FOR MEDICAID. IT WILL BE UNTIL MARCH BEFORE HE GETS HIS MEDICAID. HE HAS A CANE,OXYGEN,AND NEBULIZER. HE PAYS OUTRIGHT FOR HIS O2 THROUGH [employer]. HAS A CONCENTRATOR BUT NO PORTABLES. HE SAID HE CAN USE HIS NEBS THROUGH THE CIGARETTE BORING MACHINE SET UP OPERATOR IN HIS TRUCK BUT NOT THE O2. HIS SISTER LIVES IN A FIXED INCOME APT. HE CAN ONLY STAY ONCE IN A WHILE DUE TO THAT. HE SAID ONE SON HE HAD A PRETTY GOOD RELATIONSHIP WITH AND ALL OF A SUDDEN HE GOT MAD AT HOME. HIS EX LIVES WITH HIS OTHER SON. GAVE HIM COMMUNITY RESOURCE INFORMATION INCLUDING LIST OF HOTELS IN AREA TO CHECK FOR WEEKLY/DAILY RATES. HE SAID HE CANNOT GO TO [place] BECAUSE HE HAS A TRUCK AND NO WHERE TO PARK IT DOWN THERE. KARLI WILL BE ABLE TO GET SOME OF HIS MEDS HIM MEDS THROUGH [facility] [facility]OUNT THROUGH THE HOSPITAL. HE WILL ASK HIS SISTER IF HE CAN STAY TOMORROW NIGHT WITH HER. HE CONTINUES TO GO TO [facility]. TOLD HIM TO CONSIDER GOING TO [facility] AND HE COULD GET MEDS FREE OR LOWER COST. KELLEY FROM [employer] CALLED HIM WHILE KARLI WAS SEEING HIM.
[2020-01-27 16:00] VITALS: BP 138/64
--- NOTE | 2020-01-27 19:17 | NUR ---
RECEIVED REPORT FROM ILDA TAYLOR. ASSUMED CARE OF PT AROUND 0715. PT A&O X4. AM ASSESSMENT AND VITALS COMPLETED CHARTED. AUXILIARY EQUIPMENT TENDER IN PLACE TRAING CHARTED. PT BUMPED UP TO 3L PER NC BY RT THIS AFTERNOON. PT UP AD MANFRED THE BATHROOM, VOIDING WITHOUT ISSUE. MEDS PER EMAR. PAIN TO CHEST FROM COUGHING AND PAIN IN BILATERAL KNEES MANAGED WITH PO PAIN MEDICATION THIS SHIFT WITH PARTIAL RELIEF. PT TO GO HOME TOMORROW PENDING CASE MANAGEMENT. PT CURRENTLY SITTING UP IN BED WATCHING TV. CALL LIGHT IS WITHIN REACH. HOURLY ROUNDING PERFORMED. LOW FALL RISK PRECAUTIONS IN PLACE.
[2020-01-27 20:00] VITALS: BP 136/71
[2020-01-28] VITALS: BP 109/59
[2020-01-28 04:36] VITALS: BP 126/63
--- NOTE | 2020-01-28 06:35 | NUR ---
ASSUMED PT CARE AT APPROX 1930. PT IS AWAKE AND ORIENTED X4. 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 ASSESSMENT DONE AND CHARTED. PAIN MEDICATIONS GIVEN FOR CHEST/LEG PAIN-WITH PARTIAL RELIEF. NO ACUTE CHANGES OVERNIGHT. CALL LIGHT WITHIN REACH. HOURLY ROUNDING DONE FOR PT SAFETY.
[2020-01-28 07:18] LABS: HEMATOCRIT 40.2 % (42.0-52.0); HEMOGLOBIN 13.2 gm/dL (14.0-18.0); MCH 29.1 pg (26.0-34.0); MCHC 32.8 g/dL (28.0-37.0); MCV 88.8 fL (80.0-100.0); RBC 4.52 mil/uL (4.50-6.00); RDW-CV 13.7 % (10.5-14.5); WBC 27.9 thou/uL (4.0-11.0)
[2020-01-28 07:32] LABS: ALBUMIN 3.1 g/dL (3.4-5.0); CALCIUM 8.4 mg/dL (8.5-10.1); CREATININE 0.9 mg/dL (0.6-1.3); MAGNESIUM 2.3 mg/dL (1.8-2.4); PHOSPHORUS* 3.8 mg/dL (2.5-4.9); POTASSIUM 4.3 mmol/L (3.5-5.1)
[2020-01-28 08:00] VITALS: BP 148/94
[2020-01-28 12:00] VITALS: BP 118/40
[2020-01-28] MEDS ORDERED: MEDROLDOSEPACK PO (12:19)
[2020-01-28] MEDS ORDERED: PROAIR HFA8.5 GM INH (12:51)
[2020-01-28] MEDS ORDERED: COZAAR 25 MG TA25 M1 PO (12:51)
[2020-01-28] MEDS ORDERED: IPRAT-ALBUT 0.5-3 ML INH (12:51)
[2020-01-28] MEDS ORDERED: GLUCOTROL XL2.5 MG PO (12:51)
[2020-01-28] MEDS ORDERED: ASA81BEC PO (12:51)
[2020-01-28] MEDS ORDERED: LOPRESSOR50 MG PO (12:51)
--- NOTE | 2020-01-28 15:00 | NUR ---
PT.COULD NOT AFFORD MEDICATIONS FOR HOME. CM FAXED PRESCRIPTIONS ORDERED BY TO [address] [facility] TO FILL AND CHARGE TO CM ACCOUNT. PER HOSPITAL POLICY THEY WILL ONLY FILL 20 DAYS WORTH. TOTAL CAME TO $139.37. THEY ASKED PT.WAIT UNTIL 5PM TO PICK THEM UP. PT.INFORMED. HE WAS VERY GRATEFUL FOR THE ASSISTANCE. CLAUDIA URIBE INFORMED.
[2020-01-28 16:34] VITALS: BP 118/40
--- NOTE | 2020-01-28 18:59 | NUR ---
VS CHARTED, SR ON TELE, NC@3L, UP AD MANFRED, ACCUCHECKS, HOURLY ROUNDING PERFORMED, POSSESSIONS AND CALL LIGHT WITHIN REACH, REC DISCHARGE ORDERS, REVIEW WITH PATIENT, SCRIPTS PAID FOR PER POLICY BY CM ACCOUNT FOR 20 DAYS FOR PATIENT DUE TO LACK OF ABILITY TO PAY, PATIENT HOMELESS. CARE NOTES GIVEN, TELE MONITOR AND IV REMOVED WITHOUT COMPLICATION. PT TAKEN TO ER EXIT BY NURSING STAFF, DROVE AWAY IN HIS OWN TRUCK
--- NOTE | 2020-01-29 18:05 | NUR ---
PER KELLEY/POL[facility] MAYNARD, PT.SUBMITTED MEDICAID APPLICATION 12/24/19. POLO MAYNARD WILL FOLLOW TO COMPLETION.
== END 2020-01-28 18:10 | disposition home or self-care (01) ==
LOC: M.ERS 11:44 → M.2W 12:33 → M.TBA-ER 12:33 → M.2W 12:33
PROVIDERS: Family Medicine; ADMIT Family Medicine; ATTEND Family Medicine
DX: J96.20 Acute and chronic respiratory failure, unspecified whether with hypoxia or hypercapnia (principal); J44.1 Chronic obstructive pulmonary disease with (acute) exacerbation; I11.0 Hypertensive heart disease with heart failure; I50.9 Heart failure, unspecified; E11.65 Type 2 diabetes mellitus with hyperglycemia; Z59.0 Homelessness; Z87.891 Personal history of nicotine dependence

== ENCOUNTER 2020-02-12 21:51 | Observation (INO) | payer OTHER ==
[~2020-02-12] VITALS: Ht 182.9 cm; Wt 133.4 kg
[~2020-02-12 21:51] MED LIST changes: +ASA81BEC PO; +GLUCOTROL XL2.5 MG PO
[2020-02-12] MEDS ORDERED: GLUCOPHAGE500 MG PO (22:04)
[2020-02-12 22:06] VITALS: BP 137/79
[2020-02-12 22:38] LABS: HEMATOCRIT 40.3 % (42.0-52.0); HEMOGLOBIN 13.7 gm/dL (14.0-18.0); MCH 29.4 pg (26.0-34.0); MCHC 33.9 g/dL (28.0-37.0); MPV 8.9 fl. (7.2-11.1); NUCLEATED RBCS 0 /100WBC; PLATELET COUNT* 360 thou/uL (150-400); RBC 4.64 mil/uL (4.50-6.00); RDW-CV 13.9 % (10.5-14.5); WBC 8.8 thou/uL (4.0-11.0)
[2020-02-12 22:47] LABS: CALCIUM 8.8 mg/dL (8.5-10.1); CREATININE 0.8 mg/dL (0.6-1.3); POTASSIUM 3.9 mmol/L (3.5-5.1)
[2020-02-12 22:49] LABS: INR 1.1; PROTIME 10.9 Seconds (9.20-11.50)
[2020-02-12 23:00] LABS: ALBUMIN 3.4 g/dL (3.4-5.0); MAGNESIUM 1.8 mg/dL (1.8-2.4); TOTAL BILIRUBIN 0.3 mg/dL (<0.1-1.0)
[2020-02-12 23:10] LABS: ABSOLUTE EOSINOPHILS 0.2 thou/uL (0.0-0.7); ABSOLUTE LYMPHOCYTES 2.7 thou/uL (0.8-5.3); ABSOLUTE MONOCYTES 0.4 thou/uL (0.0-1.2); ABSOLUTE NEUTROPHILS 5.5 thou/uL (1.6-8.1); PLATELET ESTIMATE ADEQUATE
[2020-02-12 23:34] LABS: URINE BLOOD NEGATIVE (Negative); URINE CLARITY CLEAR; URINE COLOR YELLOW; URINE GLUCOSE-RANDOM NEGATIVE (Negative); URINE KETONES NEGATIVE (Negative); URINE LEUKOCYTES-REFLEX NEGATIVE (Negative); URINE NITRITE-REFLEX NEGATIVE (Negative); URINE PROTEIN TRACE (Negative); URINE SPECIFIC GRAVITY >= 1.030 (1.005-1.030); URINE UROBILINOGEN 0.2 E.U./dl (0.2-1.0)
[2020-02-12 23:36] LABS: ICTOTEST (BILI CONFIRMATORY) Negative (Negative); URINE BILIRUBIN 1+ (Negative)
[2020-02-13 04:30] VITALS: BP 139/62
[2020-02-13 08:00] VITALS: BP 113/77
--- NOTE | 2020-02-13 10:57 | EKG ---
[place] [address] ELECTROCARDIOGRAM REPORT Name: MARLENE CARTER [address] [id number] Admission: 02/13/20 Attend Phys: Jair Hay Discharge: Date of : 60 Date of Service: 02/12/20 2156 Report #: [id number] THIS REPORT FOR: //name// [facility] ED Test Date: 2020-02-12 Test Time: 21:56:20 Pat Name: MARLENE CARTER Department: Room: [facility] Gender: M Batch Analyst: [facility] : 1960 Requested By: Eden Pemberton Order Number: [id number] MD: Jasper Luna Measurements Intervals [place] Rate: 73 P: 68 OR: 154 QRS: 30 QRSD: 106 T: 60 QT: 397 QTc: 438 Interpretive Statements Sinus rhythm Borderline low voltage, extremity leads Compared to ECG 01/25/2020 11:54:03 Poor R-wave progression no longer present Electronically Signed On 02-13-2020 10:57:30 CDT by Jasper Luna [email or web address] <ELECTRONICALLY SIGNED> By: Jasper Luna MD, FAC 02/13/20 1057 2156 2156 Jasper Luna MD, [facility] /EPI
[2020-02-13 12:03] VITALS: BP 122/86
[2020-02-13 16:42] VITALS: BP 138/62
[2020-02-13 20:54] VITALS: BP 125/82
[2020-02-13 23:47] VITALS: BP 126/67
[2020-02-14 04:00] VITALS: BP 106/40
[2020-02-14 05:15] LABS: ABSOLUTE BASOPHILS 0.1 thou/uL (0.0-0.2); ABSOLUTE EOSINOPHILS 0.3 thou/uL (0.0-0.7); ABSOLUTE LYMPHOCYTES 3.4 thou/uL (0.8-5.3); ABSOLUTE NEUTROPHILS 4.9 thou/uL (1.6-8.1); BASOPHILS 0.7 %; EOSINOPHILS 3.4 %; HEMATOCRIT 38.1 % (42.0-52.0); HEMOGLOBIN 12.7 gm/dL (14.0-18.0); LYMPHOCYTES 35.2 %; MCH 29.1 pg (26.0-34.0); MCHC 33.4 g/dL (28.0-37.0); MCV 87.2 fL (80.0-100.0); NUCLEATED RBCS 0 /100WBC; PLATELET COUNT* 339 thou/uL (150-400); POLYS 50.7 %; RBC 4.36 mil/uL (4.50-6.00); RDW-CV 13.9 % (10.5-14.5); WBC 9.8 thou/uL (4.0-11.0)
[2020-02-14 05:28] LABS: CALCIUM 8.4 mg/dL (8.5-10.1); CREATININE 0.9 mg/dL (0.6-1.3); POTASSIUM 3.8 mmol/L (3.5-5.1)
[2020-02-14 07:38] VITALS: BP 139/73
[2020-02-14 10:51] VITALS: BP 139/73
[2020-02-14] MEDS ORDERED: AUGMENTIN 875-1 EACH PO (12:35)
[2020-02-14 12:40] VITALS: BP 118/60
== END 2020-02-14 13:45 | disposition home or self-care (01) ==
LOC: M.ERS 21:51 → M.TBA-ER 02-13 00:12 → M.2W 02-13 04:50
PROVIDERS: Emergency Medicine; Internal Medicine; ADMIT Internal Medicine; ATTEND Internal Medicine
DX: J96.20 Acute and chronic respiratory failure, unspecified whether with hypoxia or hypercapnia (principal); E66.01 Morbid (severe) obesity due to excess calories; I48.91 Unspecified atrial fibrillation; J44.9 Chronic obstructive pulmonary disease, unspecified; G47.33 Obstructive sleep apnea (adult) (pediatric); Z59.0 Homelessness; Z91.19 Patient's noncompliance with other medical treatment and regimen; I11.0 Hypertensive heart disease with heart failure; I50.9 Heart failure, unspecified; E11.40 Type 2 diabetes mellitus with diabetic neuropathy, unspecified; Z87.891 Personal history of nicotine dependence